=== PATIENT | male | born 1955 | race Caucasian/White ===

== ENCOUNTER 2016-08-17 03:53 | Observation (INO) | payer OTHER ==
[2016-08-17 04:03] VITALS: BMI 21.5
--- NOTE | 2016-08-17 04:10 | PDOC ---
History of Present Illness - General Chief Complaint: Syncope/Near Syncope Stated Complaint: SYNCOPE Time Seen by Provider: 08/17/16 04:06 Past History - Past Medical History Allergies/Adverse Reactions: Allergies Allergy/AdvReac Type Severity Reaction Status Date / Time No Known Allergies Allergy Verified 08/17/16 03:55 Home Medications: Ambulatory Orders NK [No Known Home Medication] 08/17/16 - Psycho/Social/Smoking Cessation Hx Suicidal Ideation: No Smoking History: Current every day smoker Information on smoking cessation initiated: No *Physical Exam - Vital Signs Last Vital Signs Temp Pulse Resp BP Pulse Ox 97.3 F L 59 L 18 120/69 96 08/17/16 04:04 08/17/16 04:01 08/17/16 04:01 08/17/16 04:01 08/17/16 04:01
--- NOTE | 2016-08-17 04:12 | PDOC ---
History of Present Illness - General Chief Complaint: Syncope/Near Syncope Stated Complaint: SYNCOPE Time Seen by Provider: 08/17/16 04:06 History Source: Patient, EMS ([facility]) - History of Present Illness Presenting Symptoms: Syncope Timing/Duration: reports: resolved prior to arrival Prior Chest Pain/Cardiac Workup: reports: No prior chest pain, No prior cardiac workup Past History - Travel Traveled outside of the country in the last 30 days: No Close contact w/someone who was outside of country & ill: No - Past Medical History Allergies/Adverse Reactions: Allergies Allergy/AdvReac Type Severity Reaction Status Date / Time No Known Allergies Allergy Verified 08/17/16 03:55 Home Medications: Ambulatory Orders NK [No Known Home Medication] 08/17/16 - Psycho/Social/Smoking Cessation Hx Suicidal Ideation: No Smoking History: Current every day smoker Information on smoking cessation initiated: No Cardiac Specific PMH - Complaint Specific PMHX Abdominal Aortic Aneurysm: No Angina: No Cardiac Arrhythmia: No Cardiac Stent: No GERD: No Review of Systems - Review of Systems Able to Perform ROS?: Yes Comments:: 08/17/16 04:23 CONSTITUTIONAL: Absent: fever, chills, diaphoresis, generalized weakness, malaise, loss of appetite HEENT: Absent: rhinorrhea, nasal congestion, throat pain, throat swelling, difficulty swallowing, mouth swelling, ear pain, eye pain, visual Changes CARDIOVASCULAR: +loc Absent: chest pain, palpitations, irregular heart rate, peripheral edema RESPIRATORY: Absent: cough, shortness of breath, dyspnea with exertion, orthopnea, wheezing, stridor, hemoptysis GASTROINTESTINAL: Absent: abdominal pain, abdominal distension, nausea, vomiting, diarrhea, constipation, melena, hematochezia GENITOURINARY: Absent: dysuria, frequency, urgency, hesitancy, hematuria, flank pain, genital pain MUSCULOSKELETAL: Absent: myalgia, arthralgia, joint swelling SKIN: Absent: rash, itching, pallor HEMATOLOGIC/IMMUNOLOGIC: Absent: easy bleeding, easy bruising, lymphadenopathy, frequent infections ENDOCRINE: Absent: unexplained weight gain, unexplained weight loss, heat intolerance, cold intolerance NEUROLOGIC: Absent: headache, focal weakness or paresthesias, dizziness, unsteady gait, seizure, mental status changes, bladder or bowel incontinence PSYCHIATRIC: Absent: anxiety, depression, suicidal or homicidal ideation, hallucinations. Is the patient limited Slovak proficient: No *Physical Exam - Vital Signs Last Vital Signs Temp Pulse Resp BP Pulse Ox 97.3 F L 74 19 117/72 100 08/17/16 04:04 08/17/16 06:40 08/17/16 06:40 08/17/16 06:40 08/17/16 06:40 - Physical Exam Comments: 08/17/16 06:27 GENERAL: Well developed, well nourished. Awake and alert. No acute distress. HEENT: Normocephalic, atraumatic. PERRLA, EOMI. No conjunctival pallor. Sclera are non- icteric. Moist mucous membranes. Oropharynx is clear. NECK: Supple. Full ROM. No JVD. Carotid pulses 2+ and symmetric, without bruits. No thyromegaly. No lymphadenopathy. CARDIOVASCULAR: Regular rate and rhythm. No murmurs, rubs, or gallops. Distal pulses are 2+ and symmetric. PULMONARY: No evidence of respiratory distress. Lungs clear to auscultation bilaterally. No wheezing, rales or rhonchi. ABDOMINAL: Soft. Non-tender. Non-distended. No rebound or guarding. No organomegaly. Normoactive bowel sounds. MUSCULOSKELETAL Normal range of motion at all joints. No bony deformities or tenderness. No CVA tenderness. EXTREMITIES: No cyanosis. No clubbing. No edema. No calf tenderness. SKIN: Warm and dry. Normal capillary refill. No rashes. No jaundice. NEUROLOGICAL: Alert, awake, appropriate. Cranial nerves 2-12 intact. No deficits to light touch and temperature in face, upper extremities and lower extremities. No motor deficits in the in face, upper extremities and lower extremities. Normoreflexic in the upper and lower extremities. Normal speech. Toes are down- going bilaterally. Gait is normal without ataxia. PSYCHIATRIC: Cooperative. Good eye contact. Appropriate mood and affect. ED Treatment Course - LABORATORY CBC & Chemistry Diagram: 08/17/16 04:13 08/17/16 04:30 - ADDITIONAL ORDERS Additional order review: Laboratory Results 08/17/16 08/17/16 08/17/16 04:30 04:13 04:13 INR 1.08 Sodium 136 Potassium 3.5 Chloride 96 L Carbon Dioxide 27 Anion Gap 13 BUN 7 Creatinine 0.8 Creat Clearance w eGFR > 60 Random Glucose 113 H Calcium 8.3 L Total Bilirubin 0.4 AST 24 ALT 28 Alkaline Phosphatase 86 Creatine Kinase 90 Troponin I < 0.02 Total Protein 6.7 Albumin 3.8 Alcohol, Quantitative < 5.0 08/17/16 04:13 RBC 4.96 MCV 90.7 MCHC 33.7 RDW 13.4 MPV 7.2 L Neutrophils % 59.5 Lymphocytes % 26.5 Monocytes % 12.2 H Eosinophils % 0.5 Basophils % 1.3 - RADIOLOGY Radiology Studies Ordered: Category Date Time Status HEAD CT WITHOUT CONTRAST [CT] Stat CT Scan 08/17/16 04:13 Taken CHEST X-RAY PORTABLE* [RAD] Stat Radiology 08/17/16 04:13 Taken Radiograph Interpretation: 08/17/16 05:07 Patient Name: Crescencio Moore THIS IS A PRELIMINARYREPORT FROM [facility] EXAM: CT brain without contrast IMAGES: 76 INDICATION: Headache and mental status changes. DATE OF SERVICE: 2016-08-17 04:40:12.0 COMPARISON: none FINDINGS: The ventricular system is midline and nondilated. The sulcal pattern is normal for the patient's age. Mild small vessel ischemic changes are noted. There is no bleed, mass, extra-axial fluid collection or mass effect. No skull fracture or skull lesion is identified. The visualized paranasal sinuses and mastoid air cells are clear other than a left maxillary sinus retention cyst or polyp. IMPRESSION: No evidence of acute pathology. THIS DOCUMENT HAS BEEN ELECTRONICALLY SIGNED Dipesh Armendariz MD 08/17/2016 04:58 EST - Medications Given in the ED: ED Medications Discontinued Medications Generic Name Dose Route Start Last Admin Trade Name Freq PRN Reason Stop Dose Admin Sodium Chloride 1,000 mls @ 1,000 mls/hr 08/17/16 04:13 08/17/16 04:22 Normal Saline - IV 08/17/16 05:12 1,000 mls/hr .Q1H ONE Administration Magnesium Sulfate 2 gm 08/17/16 06:24 08/17/16 06:44 Magnesium Sulfate IVPB 08/17/16 06:25 2 gm ONCE ONE Administration Potassium Chloride 40 meq 08/17/16 06:24 08/17/16 06:44 K-Dur - PO 08/17/16 06:25 40 meq ONCE ONE Administration Progress Note - Progress Note Progress Note: NSR at [address] elevation VS: supine: 117/72 74 pulse 19 resp sittin/70 72 pulse 20 resp 61-year-old male brought in by ambulance after a syncopal episode while at work. 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 Patient states when he went into the restroom at work, he was attempting to unbutton his pants when he immediately passed out. Patient was found by patient while laying on the floor up by the toilet. EMS states patient was unconscious when he was found. Patient denies any headache, dizziness, lightheadedness, neck pain, back pain, chest pain, shortness of breath, abdominal pains or extremity numbness or tingling sensation. Patient cannot recall why he syncopized this evening. He also states similar episode happen many years ago but was undiagnosed. *DC/Admit/Observation/Transfer Diagnosis at time of Disposition: Syncope and collapse - Discharge Dispostion Condition at time of disposition: Guarded Admit: Yes
[2016-08-17] MEDS ORDERED: SODIUM CHLORIDE 1,000 ML IV ONE (04:13)
[2016-08-17 05:02] LABS: BASOPHIL 1.3 % (0-2.0); EOSINOPHIL 0.5 % (0-4.5); MCH 30.6 pg (25.7-33.7); MCHC 33.7 g/dl (32.0-35.9); MEAN CELL VOLUME 90.7 fl (80-96); MEAN PLT VOLUME 7.2 fl (7.5-11.1); NEUTROPHILS 59.5 % (42.8-82.8); PLATELET COUNT 195 K/MM3 (134-434); RDW 13.4 % (11.9-15.9); WHITE BLOOD COUNT 5.5 K/mm3 (4.0-10.0)
[2016-08-17 05:19] LABS: INR 1.08 (0.82-1.09); PROTHROMBIN TIME (PATIENT) 11.9 SEC (9.98-11.88)
[2016-08-17 06:04] LABS: ALBUMIN 3.8 g/dl (3.4-5.0); ANION GAP 13 (8-16); BILIRUBIN,TOTAL 0.4 mg/dL (0.2-1.0); CALCIUM 8.3 mg/dL (8.5-10.1); CO2 27 mmol/L (21-32); CREATININE 0.8 mg/dL (0.7-1.3); GLUCOSE,RANDOM 113 mg/dL (74-106); SGOT/AST 24 U/L (15-37); SGPT/ALT 28 U/L (12-78); TOT PROT 6.7 g/dl (6.4-8.2)
[2016-08-17 06:07] LABS: ALK PHOS 86 U/L (45-117); TROPONIN I < 0.02 ng/ml (0.00-0.05)
[2016-08-17] MEDS ORDERED: POTASSIUM CHLORIDE TABS 20 MEQ TABLET.ER (FP) PO ONE ×2 (06:24→06:46)
[2016-08-17] MEDS ORDERED: MAGNESIUM SULF 50% (8.12 MEQ/2 ML-1 GM VIAL) IVPB ONE (06:24)
[2016-08-17] MEDS ORDERED: MAGNESIUM SULF 50% (8.12 MEQ/2 ML-1 GM VIAL) ONE (06:46)
--- NOTE | 2016-08-17 09:10 | HP ---
CHIEF COMPLAINT: Syncope PCP: HISTORY OF PRESENT ILLNESS: 61 year old male with no PMH is brought via EMS after a syncopal episode while at work. The patient was sitting for some time after he stood up, went to the bathroom and passed out. He was found unconscious on the floor. He states that he vomited twice. He denies dizziness or lightheadedness before the incident. He denies seizure activity, urinating, hitting his head, vomitus was non bilious and non bloody. 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 Patient denies any headache, dizziness, lightheadedness, headache, back pain, chest pain, shortness of breath, numbness, tingling sensation. He also states that he had similar episode several years ago. ER course was notable for: (1)CT head (2)troponin (3)CXR PAST MEDICAL HISTORY: Chronic shoulder pain-right. PAST SURGICAL HISTORY: None Social History: Smoking: Yes, pack/day for 45 years Alcohol: 2 beers/week Drugs: Denies Family History: Mother; maniac,depressive disorder Father:none Allergies: No Known Allergies Allergy (Verified 08/17/16 03:55) HOME MEDICATIONS: Medication Instructions Recorded NK [No Known Home Medication] 08/17/16 REVIEW OF SYSTEMS CONSTITUTIONAL: Absent: fever, chills, diaphoresis, generalized weakness, malaise, loss of appetite, weight change HEENT: Absent: rhinorrhea, nasal congestion, throat pain, throat swelling, difficulty swallowing, mouth swelling, ear pain, eye pain, visual changes CARDIOVASCULAR: Absent: chest pain, syncope, palpitations, irregular heart rate, lightheadedness , peripheral edema RESPIRATORY: Absent: cough, shortness of breath, dyspnea with exertion, orthopnea, wheezing, stridor, hemoptysis GASTROINTESTINAL: Absent: abdominal pain, abdominal distension, nausea, vomiting, diarrhea, constipation, melena, hematochezia GENITOURINARY: Absent: dysuria, frequency, urgency, hesitancy, hematuria, flank pain, genital pain MUSCULOSKELETAL: Right shoulder pain Absent: myalgia, joint swelling, back pain, neck pain SKIN: Absent: rash, itching, pallor HEMATOLOGIC/IMMUNOLOGIC: Absent: easy bleeding, easy bruising, lymphadenopathy, frequent infections ENDOCRINE: Absent: unexplained weight gain, unexplained weight loss, heat intolerance, cold intolerance NEUROLOGIC: Absent: headache, focal weakness or paresthesias, dizziness, unsteady gait, seizure, mental status changes, bladder or bowel incontinence PSYCHIATRIC: Absent: anxiety, depression, suicidal or homicidal ideation, hallucinations. PHYSICAL EXAMINATION Vital Signs - 24 hr 08/17/16 07:39 Pulse Rate [ 67 Left Apical] Respiratory 18 Rate Blood Pressure 104/72 [Right Arm] O2 Sat by Pulse 98 Oximetry (%) GENERAL: Awake, alert, and fully oriented, in no acute distress, sishelved. HEAD: Normal with no signs of trauma. EYES: Pupils equal, round and reactive to light, extraocular movements intact, sclera anicteric, conjunctiva clear. No lid lag. EARS, NOSE, THROAT: Ears normal, nares patent, oropharynx clear without exudates. Moist mucous membranes. NECK: Normal range of motion, supple without lymphadenopathy, JVD, or masses. LUNGS: Breath sounds equal, clear to auscultation bilaterally. No wheezes, and no crackles. No accessory muscle use. HEART: Regular rate and rhythm, normal S1 and S2 without murmur, rub or gallop. ABDOMEN: Soft, nontender, not distended, normoactive bowel sounds, no guarding, no rebound, no masses. No hepatomegaly or splenomegaly. MUSCULOSKELETAL: Normal range of motion at all joints. No bony deformities or tenderness. No CVA tenderness. UPPER EXTREMITIES: 2+ pulses, warm, well-perfused. No cyanosis. No clubbing. Cap refill <2 seconds. No peripheral edema. LOWER EXTREMITIES: 2+ pulses, warm, well-perfused. No calf tenderness. No peripheral edema. NEUROLOGICAL: Cranial nerves II-XII intact. Normal speech. Normal gait. PSYCHIATRIC: Cooperative. Good eye contact. Appropriate mood and affect. SKIN: Warm, dry, normal turgor, no rashes or lesions noted. CXR; No acute pathology CT head; no acute pathology EKG: NSR ASSESSMENT/PLAN: 61 year old male with no PMH is brought via EMS after a syncopal episode while at work. The patient was sitting for some time after he stood up, went to the bathroom and passed out. He was found unconscious on the floor. He states that he vomited twice. He denies dizziness or lightheadedness before the incident. He denies seizure activity, urinating, hitting his head, vomitus was non bilious and non bloody. He is placed on observation for syncope. Syncope episode: r/o cardiogenic or neurogenic/vasovagal -telemetry observation -pt doesnt have any chest pain or palpitations, no Neuro deficits -orthostatics -ECHO ordered -f/u troponins, first one negative -repeat EKG -NS 75 ml/hr DVT PPX: -ambulation GI PPX: -not indicated F/E/N: No/No changes/Regular - Problem List - Problem (1) Syncope and collapse Code(s): R55 - SYNCOPE AND COLLAPSE Visit type - Emergency Visit Emergency Visit: Yes ED Registration Date: 08/17/16 Care time: The patient presented to the Emergency Department on the above date and was hospitalized for further evaluation of their emergent condition. - New Patient This patient is new to me today: Yes Date on this admission: 08/17/16 - Critical Care Critical Care patient: No
--- NOTE | 2016-08-17 10:46 | PN ---
Teaching Attending Note Name of Resident: Kristy Welch ATTENDING PHYSICIAN STATEMENT I saw and evaluated the patient. I reviewed the resident's note and discussed the case with the resident. I agree with the resident's findings and plan as documented. SUBJECTIVE: This is a 61-year-old man who was brought in to the ER this morning after he passed out at work. 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 The last thing he remembers is trying to unbutton his pants. He had no chest pain, palpitations, shortness of breath, dizziness prior. He was found unconscious on the floor. He vomited but did not bite his tongue and was not incontinent of urine or stool. There was no apparent post-ictal period. He had a syncopal episode several years ago and no cause was found. OBJECTIVE: Vital Signs Period Temp Pulse Resp BP Sys/Tucker Pulse Ox Last 24 Hr 97.3 F 59-74 18-19 104-120/69-72 96-100 HEART: S1 S2, RRR LUNGS: Clear ABDOMEN: Soft, non-tender, non-distended, normal BS EXTREMITIES: No edema NEUROLOGICAL: Non-focal ASSESSMENT AND PLAN: This is a 61-year-old man with a history of a syncopal episode several years ago who presents to the ER today after passing out in the bathroom at work. 1. Syncope - Observe on telemetry - IV fluid - Check orthostatics - Serial troponins - Echocardiogram - EEG
[2016-08-17 11:42] LABS: CHOLESTEROL 168 mg/dL (50-200); LDL CHOLESTEROL (ONLY SJRH) 101 mg/dL (5-100)
[2016-08-17] MEDS: SODIUM CHLORIDE 1,000 ML IV SCH (12:22)
--- NOTE | 2016-08-17 23:20 | EKG ---
Test Reason : Blood Pressure : / mmHG Vent. Rate : 063 BPM Atrial Rate : 063 BPM P-R Int : 136 ms QRS Dur : 082 ms QT Int : 412 ms P-R-T Axes : 082 063 059 degrees QTc Int : 421 ms NORMAL SINUS RHYTHM SEPTAL INFARCT (CITED ON OR BEFORE 17-AUG-2016) ABNORMAL ECG WHEN COMPARED WITH ECG OF 17-AUG-2016 04:11, NO SIGNIFICANT CHANGE WAS FOUND Confirmed by SCAR SCHULER, SAMINA ([id number]) on 08/17/2016 11:20:06 PM Referred By: Confirmed By:SAMINA ABBOTT MD
--- NOTE | 2016-08-17 23:23 | EKG ---
Test Reason : Blood Pressure : / mmHG Vent. Rate : 061 BPM Atrial Rate : 061 BPM P-R Int : 152 ms QRS Dur : 090 ms QT Int : 438 ms P-R-T Axes : 082 066 060 degrees QTc Int : 440 ms NORMAL SINUS RHYTHM POSSIBLE LEFT ATRIAL ENLARGEMENT ANTERIOR INFARCT , AGE UNDETERMINED ABNORMAL ECG WHEN COMPARED WITH ECG OF 06-APR-2010 07:54, NO SIGNIFICANT CHANGE WAS FOUND Confirmed by SAMINA ABBOTT MD ([id number]) on 08/17/2016 11:23:26 PM Referred By: Confirmed By:SAMINA ABBOTT MD
[2016-08-18] MEDS: SODIUM CHLORIDE 1,000 ML IV SCH ×2 (06:20→10:05)
[2016-08-18 09:19] LABS: URINE APPEARANCE CLEAR; URINE BILIRUBIN NEGATIVE (NEGATIVE); URINE BLOOD NEGATIVE (NEGATIVE); URINE COLOR YELLOW; URINE GLUCOSE (UA) NEGATIVE (NEGATIVE); URINE KETONE TRACE (NEGATIVE); URINE LEUK ESTERASE NEGATIVE (NEGATIVE); URINE NITRITE NEGATIVE (NEGATIVE); URINE PROTEIN NEGATIVE (NEGATIVE); URINE UROBILINOGEN 2.0 E.U/dl E.U./dl (0.2-1.0)
[2016-08-18 15:07] VITALS: BP 115/67; PULSE 70; TEMP 98.1
--- NOTE | 2016-08-18 16:02 | PN ---
Teaching Attending Note Name of Resident: Kristy Welch ATTENDING PHYSICIAN STATEMENT I saw and evaluated the patient. I reviewed the resident's note and discussed the case with the resident. I agree with the resident's findings and plan as documented. SUBJECTIVE: Patient is comfortable with no acute distress, no shortness of breath, no headache, no abdominal pain, no nausea or vomiting, no fever or chills. OBJECTIVE: Vital Signs Temperature 98.1 F 08/18/16 15:06 Pulse Rate 70 08/18/16 15:06 Respiratory Rate 18 08/18/16 15:06 Blood Pressure 115/67 08/18/16 15:06 O2 Sat by Pulse Oximetry (%) 99 08/18/16 08:20 GENERAL: The patient is awake, alert, and fully oriented, in no acute distress. HEAD: Normal with no signs of trauma. EYES: PERRL, extraocular movements intact, sclera anicteric, conjunctiva clear. ENT: Ears normal, nares patent, oropharynx clear without exudates, moist mucous membranes, no teeth present. NECK: Trachea midline, full range of motion, supple. LUNGS: Breath sounds equal, clear to auscultation bilaterally, no wheezes, no crackles, no accessory muscle use. HEART: Regular rate and rhythm, S1, S2 without murmur, rub or gallop. ABDOMEN: Soft, nontender, nondistended, normoactive bowel sounds, no guarding, no rebound, no hepatosplenomegaly, no masses. EXTREMITIES: 2+ pulses, warm, well-perfused, no edema. NEUROLOGICAL: Cranial nerves II through XII grossly intact. Normal speech, gait not observed. PSYCH: Normal mood, normal affect. SKIN: Warm, dry, normal turgor, no rashes or lesions noted. CBCD WBC 5.5 K/mm3 (4.0-10.0) 08/17/16 04:13 RBC 4.96 M/mm3 (4.00-5.60) 08/17/16 04:13 Hgb 15.2 GM/dL (11.7-16.9) 08/17/16 04:13 Hct 45.0 % (35.4-49) 08/17/16 04:13 MCV 90.7 fl (80-96) 08/17/16 04:13 MCHC 33.7 g/dl (32.0-35.9) 08/17/16 04:13 RDW 13.4 % (11.9-15.9) 08/17/16 04:13 Plt Count 195 K/MM3 (134-434) 08/17/16 04:13 MPV 7.2 fl (7.5-11.1) L 08/17/16 04:13 CMP Sodium 136 mmol/L (136-145) 08/17/16 04:30 Potassium 3.5 mmol/L (3.5-5.1) 08/17/16 04:30 Chloride 96 mmol/L (98-107) L 08/17/16 04:30 Carbon Dioxide 27 mmol/L (21-32) 08/17/16 04:30 Anion Gap 13 (8-16) 08/17/16 04:30 BUN 7 mg/dL (7-18) 08/17/16 04:30 Creatinine 0.8 mg/dL (0.7-1.3) 08/17/16 04:30 Creat Clearance w eGFR > 60 (>60) 08/17/16 04:30 Random Glucose 113 mg/dL (74-106) H 08/17/16 04:30 Calcium 8.3 mg/dL (8.5-10.1) L 08/17/16 04:30 Total Bilirubin 0.4 mg/dL (0.2-1.0) 08/17/16 04:30 AST 24 U/L (15-37) 08/17/16 04:30 ALT 28 U/L (12-78) 08/17/16 04:30 Alkaline Phosphatase 86 U/L (45-117) 08/17/16 04:30 Total Protein 6.7 g/dl (6.4-8.2) 08/17/16 04:30 Albumin 3.8 g/dl (3.4-5.0) 08/17/16 04:30 CARDIAC ENZYMES Creatine Kinase 90 IU/L (39-308) 08/17/16 04:30 Troponin I < 0.02 ng/ml (0.00-0.05) 08/17/16 17:00 Current Medications Generic Name Dose Route Start Last Admin Trade Name Freq PRN Reason Stop Dose Admin Sodium Chloride 1,000 mls @ 75 mls/hr 08/17/16 10:00 08/18/16 10:05 Normal Saline - IV 75 mls/hr ASDIR CAPRICE Administration Medication Instructions Recorded NK [No Known Home Medication] 08/17/16 ASSESSMENT AND PLAN: This is a 61-year-old man with a history of a syncopal episode several years ago who presents to the ER today after passing out in the bathroom at work. # S/p Syncope secondary to vasovagal event; all the work up is negative, EEG to follow up as an outpatient, cardiac monitoring, orthostatic vital signs, ECHO, EKG, carotid doppler studies, were all negative.
--- NOTE | 2016-08-18 17:09 | DS ---
Physical Exam: SUBJECTIVE: Patient seen and examined. He denies more episodes of syncope, dizziness, headache, vision problems, paresthesia. He denies chest pain, SOB. OBJECTIVE: Vital Signs Period Temp Pulse Resp BP Sys/Tucker Pulse Ox Last 24 Hr 97.8 F-98.1 F 63-88 16-20 111-139/57-80 98-99 PHYSICAL EXAM GENERAL: The patient is awake, alert, and fully oriented, in no acute distress. HEAD: Normal with no signs of trauma. EYES: PERRL, extraocular movements intact, sclera anicteric, conjunctiva clear. ENT: Ears normal, nares patent, oropharynx clear without exudates, moist mucous membranes, no teeth present. NECK: Trachea midline, full range of motion, supple. LUNGS: Breath sounds equal, clear to auscultation bilaterally, no wheezes, no crackles, no accessory muscle use. HEART: Regular rate and rhythm, S1, S2 without murmur, rub or gallop. ABDOMEN: Soft, nontender, nondistended, normoactive bowel sounds, no guarding, no rebound, no hepatosplenomegaly, no masses. EXTREMITIES: 2+ pulses, warm, well-perfused, no edema. NEUROLOGICAL: Cranial nerves II through XII grossly intact. Normal speech, gait not observed. PSYCH: Normal mood, normal affect. SKIN: Warm, dry, normal turgor, no rashes or lesions noted. LABS Laboratory Results - last 24 hr 08/17/16 08/18/16 17:00 05:40 Troponin I < 0.02 Urine Color Yellow Urine Appearance Clear Urine pH 6.0 Ur Specific [place] 1.014 Urine Protein Negative Urine Glucose (UA) Negative Urine Ketones Trace H Urine Blood Negative Urine Nitrite Negative Urine Bilirubin Negative Urine Urobilinogen 2.0 e.u/dl Ur Leukocyte Esterase Negative HOSPITAL COURSE: Date of Admission:08/17/16 Date of Discharge: 08/18/16 Minutes to complete discharge: 50 Discharge Summary Reason For Visit: SYNCOPE AND COLLAPSE Current Active Problems Syncope and collapse (Acute) Hospital Course: 61 year old male with no PMH is brought via EMS after a syncopal episode while at work. The patient was sitting for some time after he stood up, went to the bathroom and passed out. He was found unconscious on the floor. He states that he vomited twice. He denies dizziness or lightheadedness before the incident. He denies seizure activity, urinating, hitting his head, vomit was non bilious and non bloody. 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 Patient denies any headache, dizziness, lightheadedness, headache, back pain, chest pain, shortness of breath, numbness, tingling sensation. He also states that he had similar episode several years ago. Hospital course: We ordered CY head, labs, troponins x3, CXR and results were normal. The pt didn't have more episodes of syncope. We placed him on observation. Ordered cardiac monitoring, orthostatic vital signs, ECHO, EKG, carotid doppler studies, fluids, EEG. The results came back negative. We diagnosed the pt as possible vasovagal syndrome and recommend to follow up with his PCP as outpatient. Condition: Good - Instructions Diet, Activity, Other Instructions: See your PCP in a week. If you have more episodes of syncope, dizziness, lightheadedness, vomiting, bleeding, chest pain, SOB come to Emergency Room. Referrals: Malissa Jain MD [Primary Care Provider] - Disposition: HOME - Home Medications Comprehensive Discharge Medication List: Ambulatory Orders NK [No Known Home Medication] 08/17/16 Problem List - Problems (1) Syncope and collapse Code(s): R55 - SYNCOPE AND COLLAPSE This patient is new to me today: No Emergency Visit: Yes ED Registration Date: 08/17/16 Care time: The patient presented to the Emergency Department on the above date and was hospitalized for further evaluation of their emergent condition. Critical Care patient: No - Discharge Referral Referred to [facility] Med P.C.: No
== END 2016-08-18 17:32 | disposition home or self-care (01) ==
LOC: JER 03:53 → JERBED 07:03 → J4W 17:27
PROVIDERS: ADMIT Internal Medicine; ATTEND Internal Medicine
DX: R55 Syncope and collapse (principal); F17.200 Nicotine dependence, unspecified, uncomplicated; F32.89 Other specified depressive episodes
CPT/HCPCS: 36415; 70450-TC; 71010-TC; 80053; 80061; 80307; 81003; 82550; 83721; 84484; 85025; 85610; 86850; 86900; 86901; 93005; 93010; 93306-TC; 93880-TC; 95816; 99285-25; G0378

== ENCOUNTER 2017-08-18 09:48 | Emergency (ER) | payer OTHER ==
[2017-08-18 09:53] VITALS: BP 144/69; PULSE 105; TEMP 98.8; BMI 18.8
--- NOTE | 2017-08-18 12:09 | PDOC ---
History of Present Illness - General Chief Complaint: Cold Symptoms Stated Complaint: SOB Time Seen by Provider: 08/18/17 11:35 History Source: Patient Exam Limitations: No Limitations - History of Present Illness Initial Comments: 08/18/17 12:01 62-year-old male presents to the ED with a cough with productive [place] phlegm for the past 5 days. Patient denies shortness of breath, fever, chills, chest pain, weight loss, hemoptysis or night sweats. Patient is a up pack per day if not more of cigarettes for the past 40 years. Patient states has been using his inhaler that he was given by his physician last winter for bronchitis but states symptoms do not resolve completely. patient states history of COPD. Timing/Duration: reports: other (5 days) Severity: reports: mild, moderate Possible Cause: Yes: occasional episodes Modifying Factors: improves with: coughing Associated Symptoms: reports: cough. denies: fever/chills Past History - Travel Traveled outside of the country in the last 30 days: No - Past Medical History Allergies/Adverse Reactions: Allergies Allergy/AdvReac Type Severity Reaction Status Date / Time No Known Allergies Allergy Verified 08/18/17 09:53 Home Medications: Ambulatory Orders Naproxen 500 mg PO BID 8 Days #16 tablet 08/14/17 Oxycodone HCl/Acetaminophen [Percocet 10-325 mg Tablet] 1 each PO BID PRN Zolpidem Tartrate [Ambien] 10 mg PO HS 08/14/17 Anemia: No Asthma: No Cancer: No Cardiac Disorders: No CVA: No COPD: Yes (emphysema) CHF: No Dementia: No Diabetes: No GI Disorders: No Disorders: No HTN: No Hypercholesterolemia: No Liver Disease: No Seizures: No Thyroid Disease: No - Surgical History Abdominal Surgery: No Appendectomy: No Cardiac Surgery: No Cholecystectomy: No Lung Surgery: No Neurologic Surgery: No Orthopedic Surgery: No - Suicide/Smoking/Psychosocial Hx Smoking History: Current every day smoker Have you smoked in the past 12 months: Yes Number of Cigarettes Smoked Daily: 20 Cigars Per Day: 0 Information on smoking cessation initiated: Yes 'Breaking Loose' booklet given: 08/18/17 Hx Alcohol Use: No Drug/Substance Use Hx: No Substance Use Type: Alcohol Hx Substance Use Treatment: Yes (detox, [facility], [facility] ) Patient Lives Alone: Yes Lives with/in: lives alone Respiratory Specific PMHX - Complaint Specific PMHX Angina: No Review of Systems - Review of Systems Able to Perform ROS?: No Constitutional: No: Symptoms Reported HEENTM: No: Symptoms Reported Respiratory: Yes: Cough, Productive cough Cardiac (ROS): No: Symptoms Reported ABD/GI: No: Symptoms Reported : No: Symptoms Reported Musculoskeletal: No: Symptoms Reported Integumentary: No: Symptoms Reported *Physical Exam - Vital Signs Last Vital Signs Temp Pulse Resp BP Pulse Ox 98.8 F 105 H 19 144/69 94 L 08/18/17 09:51 08/18/17 09:51 08/18/17 09:51 08/18/17 09:51 08/18/17 09:51 - Physical Exam General Appearance: Yes: Nourished, Appropriately Dressed. No: Apparent Distress HEENT: positive: Pharynx Normal Neck: positive: Supple Respiratory/Chest: positive: Lungs Clear, Normal Breath Sounds. negative: Respiratory Distress, Accessory Muscle Use Cardiovascular: positive: Regular Rhythm, Regular Rate (92 on exam). negative: Murmur Gastrointestinal/Abdominal: positive: Soft Extremity: positive: Normal Capillary Refill Integumentary: positive: Normal Color, Warm, Moist Neurologic: positive: Normal Mood/Affect, Motor Strength 5/5 (ambulatory) ED Treatment Course - RADIOLOGY Radiology Studies Ordered: Category Date Time Status CHEST PA & LAT [RAD] Stat Radiology 08/18/17 11:55 Ordered Medical Decision Making - Medical Decision Making 08/18/17 12:12 Pt with productive cough x 5 days. Pt with low grade temp and cough upon arrival. Pt is a ppd smoker. Pt concerniing for pneumonia, bronchitis, and influenza. Pt ordered for cxr and influenza 08/18/17 13:13 Chest x-ray shows no acute pathology. Influenza negative. Patient be discharged home with a Z-Mahesh for treatment of bronchitis and recommended to follow up with referred PMD and avoid smoking *DC/Admit/Observation/Transfer Diagnosis at time of Disposition: Bronchitis - Discharge Dispostion Disposition: HOME Condition at time of disposition: Good - Referrals Referrals: Johnny Chang MD [Staff Physician] - - Patient Instructions Printed Discharge Instructions: DI for Acute Bronchitis Additional Instructions: Please take azithromycin as prescribed use your inhaler as needed and please follow-up with referred physician. Please also avoid smoking as much as possible - Post Discharge Activity
== END 2017-08-18 13:17 | disposition home or self-care (01) ==
LOC: JERFT 09:48
DX: J40 Bronchitis, not specified as acute or chronic (principal); F17.210 Nicotine dependence, cigarettes, uncomplicated; J43.8 Other emphysema
CPT/HCPCS: 71046-TC; 87804; 99281-25

== ENCOUNTER 2019-05-11 09:34 | Observation (INO) | payer MEDICARE, OTHER ==
[2019-05-11 10:09] LABS: BASO % 0.5 % (0-2.0); EOS % 0.4 % (0-4.5); HEMATOCRIT 43.9 % (35.4-49); HEMOGLOBIN 14.9 GM/dL (11.7-16.9); LYMPH % 19.1 % (8-40); MCH 31.3 pg (25.7-33.7); MEAN CELL VOLUME 92.2 fl (80-96); MEAN PLT VOLUME 8.5 fl (7.5-11.1); MONO % 9.2 % (3.8-10.2); NEUT % 70.8 % (42.8-82.8); PLATELET COUNT 370 K/MM3 (134-434); RBC 4.77 M/mm3 (4.00-5.60); RDW 13.7 % (11.9-15.9)
[2019-05-11 11:03] LABS: ALBUMIN 3.4 g/dl (3.4-5.0); ALK PHOS 87 U/L (45-117); ANION GAP 7 MMOL/L (8-16); BILIRUBIN,TOTAL 0.5 mg/dL (0.2-1); BLOOD UREA NITROGEN 9.2 mg/dL (7-18); CALCIUM 8.3 mg/dL (8.5-10.1); CHLORIDE 102 mmol/L (98-107); CO2 27 mmol/L (21-32); CREATININE 0.5 mg/dL (0.55-1.3); GLUCOSE,RANDOM 103 mg/dL (74-106); POTASSIUM 3.9 mmol/L (3.5-5.1); SGOT/AST 25 U/L (15-37); SGPT/ALT 27 U/L (13-61); SODIUM 136 mmol/L (136-145); TOT PROT 6.6 g/dl (6.4-8.2)
--- NOTE | 2019-05-11 11:03 | EKG ---
Test Reason : Blood Pressure : / mmHG Vent. Rate : 090 BPM Atrial Rate : 090 BPM P-R Int : 150 ms QRS Dur : 076 ms QT Int : 340 ms P-R-T Axes : 086 080 079 degrees QTc Int : 415 ms NORMAL SINUS RHYTHM ANTEROSEPTAL INFARCT (CITED ON OR BEFORE 17-AUG-2016) ABNORMAL ECG WHEN COMPARED WITH ECG OF 17-AUG-2016 12:32, QUESTIONABLE CHANGE IN INITIAL FORCES OF SEPTAL LEADS Confirmed by CAROLIN HOWARD MD ([id number]) on 05/11/2019 11:03:06 AM Referred By: Confirmed By:CAROLIN HOWARD MD
--- NOTE | 2019-05-11 11:25 | PDOC ---
Documentation entered by Keeley Hernández SCRIBE, acting as scribe for Ashley Basurto MD. Ashley Basurto MD: This documentation has been prepared by the Edgar clayton Adrianna, SCRIBE, under my direction and personally reviewed by me in its entirety. I confirm that the documentation accurately reflects all work, treatment, procedures, and medical decision making performed by me. History of Present Illness - General Chief Complaint: Syncope/Near Syncope Stated Complaint: Syncope/Near Syncope Time Seen by Provider: 05/11/19 09:39 History Source: Patient Exam Limitations: No Limitations - History of Present Illness Initial Comments: The patient is a 64 year old male, with a significant PMH of COPD/emphysema, who presents to the ED BIBEMS s/p near-syncopal episodes. 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 He is able to recall the entire episode, and notes that he slowly lowered himself to the ground to avoid falling. Patient notes he landed on his left hip and lower back , but denies hitting his head. He endorses a cough productive of white sputum secondary to his emphysema. Denies any other complaints while in the ED. Denies fever, chills, chest pain, SOB, nausea, vomit, abdominal pain, diarrhea, constipation, dysuria, hematuria. Allergies: NKA, NKDA Surgical History: None reported Social History: Current everyday smoker (1 ppd). Occasional EtOH use. PCP: Doesnt recall Is this a multiple visit Asthma Patient?: No Past History - Past Medical History Allergies/Adverse Reactions: Allergies Allergy/AdvReac Type Severity Reaction Status Date / Time No Known Allergies Allergy Verified 05/11/19 09:42 Home Medications: Ambulatory Orders NK [No Known Home Medication] 05/11/19 Anemia: No Asthma: No Cancer: No Cardiac Disorders: No CVA: No COPD: Yes (emphysema) CHF: No Dementia: No Diabetes: No GI Disorders: No Disorders: No HTN: No Hypercholesterolemia: No Liver Disease: No Seizures: No Thyroid Disease: No - Surgical History Abdominal Surgery: No Appendectomy: No Cardiac Surgery: No Cholecystectomy: No Lung Surgery: No Neurologic Surgery: No Orthopedic Surgery: No - Psycho Social/Smoking Cessation Hx Smoking History: Current every day smoker Have you smoked in the past 12 months: Yes Number of Cigarettes Smoked Daily: 20 Cigars Per Day: 0 Information on smoking cessation initiated: No 'Breaking Loose' booklet given: 08/18/17 Hx Alcohol Use: No Drug/Substance Use Hx: No Substance Use Type: Alcohol Hx Substance Use Treatment: Yes (detox, [facility], [facility] ) Review of Systems - Review of Systems Comments:: GENERAL/CONSTITUTIONAL: No fever or chills. No weakness. HEAD, EYES, EARS, NOSE AND THROAT: No change in vision. No ear pain or discharge. No sore throat. CARDIOVASCULAR: No chest pain or shortness of breath. RESPIRATORY: +Cough productive of white sputum (2/2 emphysema). No wheezing or hemoptysis. GASTROINTESTINAL: No nausea, vomiting, diarrhea or constipation. GENITOURINARY: No dysuria, frequency, or change in urination. MUSCULOSKELETAL: No joint or muscle swelling or pain. No neck or back pain. SKIN: No rash NEUROLOGIC: No headache, vertigo, loss of consciousness, or change in strength/ sensation. ENDOCRINE: No increased thirst. No abnormal weight change. HEMATOLOGIC/LYMPHATIC: No anemia, easy bleeding, or history of blood clots. ALLERGIC/IMMUNOLOGIC: No hives or skin allergy. *Physical Exam - Vital Signs Last Vital Signs Temp Pulse Resp BP Pulse Ox 97.4 F L 83 18 126/76 95 05/11/19 09:37 05/11/19 09:58 05/11/19 09:37 05/11/19 09:58 05/11/19 09:46 - Physical Exam Comments: GENERAL: AAOx3. The patient is in no acute distress. Answering questions appropriately. HEAD: Normal with no signs of trauma. EYES: PERRLA, EOMI, sclera anicteric, conjunctiva clear. ENT: Ears normal, nares patent, oropharynx clear without exudates. Moist mucous membranes. NECK: Normal range of motion, supple without lymphadenopathy, JVD, or masses. LUNGS: Breath sounds equal, clear to auscultation bilaterally. No wheezes, and no crackles. HEART:Regular rate and rhythm, normal S1 and S2 without murmur, rub or gallop. ABDOMEN: Soft, nontender, normoactive bowel sounds. No guarding, no rebound. No masses palpable. EXTREMITIES: Normal range of motion, no edema. No clubbing or cyanosis. No erythema, or tenderness. NEUROLOGICAL: Cranial nerves II through XII grossly intact. Normal speech. No focal neurological deficits. MUSCULOSKELETAL: Back non-tender to palpation, no CVA tenderness SKIN: Warm, Dry, normal turgor, no rashes or lesions noted. ED Treatment Course - LABORATORY CBC & Chemistry Diagram: 05/11/19 09:50 05/11/19 09:50 - ADDITIONAL ORDERS Additional order review: Laboratory Results 05/11/19 09:50 Sodium 136 Potassium 3.9 Chloride 102 Carbon Dioxide 27 Anion Gap 7 L BUN 9.2 Creatinine 0.5 L Est GFR (CKD-EPI)AfAm 132.73 Est GFR (CKD-EPI)NonAf 114.52 Random Glucose 103 Calcium 8.3 L Total Bilirubin 0.5 AST 25 ALT 27 Alkaline Phosphatase 87 Creatine Kinase 148 Troponin I < 0.02 B-Natriuretic Peptide 50.0 Total Protein 6.6 Albumin 3.4 05/11/19 09:50 RBC 4.77 MCV 92.2 MCHC 34.0 RDW 13.7 MPV 8.5 D Neutrophils % 70.8 Lymphocytes % 19.1 D Monocytes % 9.2 Eosinophils % 0.4 Basophils % 0.5 - RADIOLOGY Radiology Studies Ordered: Category Date Time Status HEAD CT WITHOUT CONTRAST [CT] Stat CT Scan 05/11/19 09:36 Completed CHEST - PA [RAD] Urgent Radiology 05/11/19 09:36 Completed HIP & PELVIS-LEFT [RAD] Stat Radiology 05/11/19 09:36 Taken Radiograph Interpretation: EXAM#: TYPE/EXAM: RESULT: [id number] RAD/CHEST - PA Chest: Hip pain. Preadmission. A single AP view of the chest reveals some vague increased markings in the upper lobes which have become more prominent than 08/18/2017. There is no sign of infiltrate or failure. The mediastinum is not widened. The angles are sharp. The bones and soft tissues are intact. Reported By: Sonny Singh MD 05/11/19 10:55 EXAM#: TYPE/EXAM: RESULT: [id number] CT/HEAD CT WITHOUT CONTRAST Syncope IMPRESSION: No significant interval change or acute intracranial pathology is identified Reported By: Julian Gallardo MD 05/11/19 11:03 EXAM#: TYPE/EXAM: RESULT: [id number] RAD/HIP PELVIS-LEFT Preadmission. Single AP of the pelvis. Left hip 2 views. Asymmetric loss of disc space height at L4-5 to the greater degree on the left side, clinically correlate for scoliosis. L5- S1, suggestion of the disc space narrowing. Symmetrical bony trabecular pattern is seen in the proximal femur bilaterally. Symmetrical articulation of the hip joints. Normal contour of the femoral heads. The visualized osseous structures appear intact. No acute bony abnormalities are seen. Reported By: Miguel Aguilar MD 05/11/19 12:01 Medical Decision Making - Medical Decision Making 05/11/19 11:15 Mr. Moore is a 64-year-old male with a history of COPD/emphysema who presents emergency department via EMS due to presyncope. Patient was at work today, suddenly felt weak. He lowered himself to the ground, landing on his left hip. He is not sure if he had a loss of consciousness, from his description it seems like he recalls everything around his fall. His next memory is of his coworker trying to wake him up. He denies preceding chest pain, palpitations, shortness of breath, focal weakness or numbness. No prior episodes like this. He has a prior medical history only of emphysema. Denies coronary artery disease. States he takes no medications. Patient differential diagnosis includes but is not limited to: ACS, arrhythmia, orthostasis/dehydration, seizure, stroke, We will do: Labs EKG Orthostatic vital signs Gentle hydration We will plan to admit EKG: Normal sinus rhythm, rate of 90 bpm, baseline is wavy, limiting interpretation. No obvious ST elevation T waves are upright Laboratory Tests 05/11/19 05/11/19 09:50 09:50 WBC 10.0 Hgb 14.9 Hct 43.9 Plt Count 370 D BUN 9.2 Creatinine 0.5 L Creatine Kinase 148 Troponin I < 0.02 CT head: No acute infarct or bleed Chest x-ray: No acute infiltrate Xray hip: No fracture noted. We will plan to place on observation Clinical impression: Syncope, initial presentation Discharge - Discharge Information Problems reviewed: Yes Clinical Impression/Diagnosis: Syncope and collapse Condition: Stable - Admission Yes - Follow up/Referral - Patient Discharge Instructions - Post Discharge Activity
[2019-05-11] MEDS ORDERED: SODIUM CHLORIDE 500 ML IV STA (11:51)
--- NOTE | 2019-05-11 13:22 | HP ---
CHIEF COMPLAINT: syncope PCP: none HISTORY OF PRESENT ILLNESS: Patient is a 64 y/o male with no past medical history who presents for syncope. 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 He got into an argument with a coworker and was feeling angry. He was standing at the bar when he felt short of breath and the next thing he knew he was on the ground. He landed on his left hip. Patient has had one syncopal episode two years ago and remembers also being angry at the time. Denies any past medical history or daily medication. Denies nausea, vomiting, dysuria, hematuria, headache, chest pain, blurry vision , fevers or chills. ER course was notable for: (1) (2) (3) Recent Travel: denies PAST MEDICAL HISTORY: none PAST SURGICAL HISTORY: denies Social History: Smokin pack a day Alcohol: 1-2 beers daily Drugs: denies Allergies No Known Allergies Allergy (Verified 05/11/19 09:42) HOME MEDICATIONS: Home Medications Medication Instructions Recorded NK [No Known Home Medication] 05/11/19 REVIEW OF SYSTEMS CONSTITUTIONAL: Absent: fever, chills, diaphoresis, generalized weakness, malaise, loss of appetite, weight change HEENT: Absent: rhinorrhea, nasal congestion, throat pain, throat swelling, difficulty swallowing, mouth swelling, ear pain, eye pain, visual changes CARDIOVASCULAR: Absent: chest pain, syncope, palpitations, irregular heart rate, lightheadedness , peripheral edema RESPIRATORY: Absent: cough, shortness of breath, dyspnea with exertion, orthopnea, wheezing, stridor, hemoptysis GASTROINTESTINAL: Absent: abdominal pain, abdominal distension, nausea, vomiting, diarrhea, constipation, melena, hematochezia GENITOURINARY: Absent: dysuria, frequency, urgency, hesitancy, hematuria, flank pain, genital pain MUSCULOSKELETAL: Absent: myalgia, arthralgia, joint swelling, back pain, neck pain SKIN: Absent: rash, itching, pallor HEMATOLOGIC/IMMUNOLOGIC: Absent: easy bleeding, easy bruising, lymphadenopathy, frequent infections ENDOCRINE: Absent: unexplained weight gain, unexplained weight loss, heat intolerance, cold intolerance NEUROLOGIC: Absent: headache, focal weakness or paresthesias, dizziness, unsteady gait, seizure, mental status changes, bladder or bowel incontinence PSYCHIATRIC: Absent: anxiety, depression, suicidal or homicidal ideation, hallucinations. PHYSICAL EXAMINATION Vital Signs - 24 hr 05/11/19 05/11/19 05/11/19 09:37 09:46 09:58 Temperature 97.4 F L Pulse Rate 90 Pulse Rate [ 88 Left side Sitting] Pulse Rate [ 98 H Left side Standing] Pulse Rate [ 83 Left side Supine] Respiratory 18 Rate Blood Pressure 152/92 Blood Pressure 133/86 [Left side Sitting] Blood Pressure 151/107 H [Left side Standing] Blood Pressure 126/76 [Left side Supine] O2 Sat by Pulse 95 95 Oximetry (%) GENERAL: Awake, alert, and fully oriented, in no acute distress. HEAD: Normal with no signs of trauma. EYES: Pupils equal, round and reactive to light, extraocular movements intact, EARS, NOSE, THROAT: Moist mucous membranes. normal dentition NECK: Normal range of motion, LUNGS: Breath sounds equal, clear to auscultation bilaterally. No wheezes, and no crackles. No accessory muscle use. HEART: Regular rate and rhythm, normal S1 and S2 without murmur, rub or gallop. ABDOMEN: Soft, nontender, not distended, normoactive bowel sounds, no guarding, no rebound, no masses. MUSCULOSKELETAL: Normal range of motion at all joints. LOWER EXTREMITIES: 2+ pulses, warm, well-perfused. No calf tenderness. No peripheral edema. NEUROLOGICAL: Cranial nerves II-XII intact. Normal speech. Normal gait. heel to toe normal PSYCHIATRIC: Cooperative. Good eye contact. Appropriate mood and affect. SKIN: Warm, dry, normal turgor, no rashes or lesions noted, normal capillary refill. CBC, BMP 05/11/19 09:50 05/11/19 09:50 ASSESSMENT/PLAN: Patient is a 64 y/o male with no past medical history who presents for syncope. #Syncope - possibly reflex syncope 2/2 to emotional response, r/o cardiac and vascular causes - monitor patients on tele - f/u echo - orthostatics negative - ekg w/o heart blocks or bundle branch blocks, poor R wave progression in lateral leads #DVT ppx - lovenox 40 daily #nicotine dependence - patient does not want a nicotine patch at this time - counselor/art therapist on methods to aid with quitting FEN regular diet Dispo: monitor on tele, obs Visit type - Emergency Visit Emergency Visit: Yes ED Registration Date: 05/11/19 Care time: The patient presented to the Emergency Department on the above date and was hospitalized for further evaluation of their emergent condition. - New Patient This patient is new to me today: Yes Date on this admission: 05/12/19 - Critical Care Critical Care patient: No ATTENDING PHYSICIAN STATEMENT I saw and evaluated the patient. I reviewed the resident's note and discussed the case with the resident. I agree with the resident's findings and plan as documented. SUBJECTIVE: OBJECTIVE: ASSESSMENT AND PLAN:
--- NOTE | 2019-05-11 15:23 | ECHO ---
Name: DEBRA ARAUJO Exam:Adult Echocardiogram Study Date: 05/11/2019 02:29 PM Age: 64 yrs Reason For Study: SYNCOPE Height: 71 in Weight: 135 lb BSA: 1.8 m2 MMode/2D Measurements & Calculations IVSd: 0.69 cm Ao root diam: 3.2 cm LVIDd: 5.2 cm LA dimension: 3.0 cm LVIDs: 3.0 cm ACS: 1.9 cm LVPWd: 0.84 cm IVSs: 1.1 cm LVPWs: 1.1 cm EDV(Teich): 129.0 ml ESV(Teich): 33.8 ml Doppler Measurements & Calculations MV E max chandu: 61.0 cm/sec Ao V2 max: 102.8 cm/sec MV A max chandu: 56.5 cm/sec Ao max P.2 mmHg MV E/A: 1.1 Ao V2 mean: 62.7 cm/sec Ao mean P.8 mmHg Ao V2 VTI: 16.5 cm TR max chandu: 317.4 cm/sec Med Peak E' Chandu: 8.4 cm/sec TR max P.3 mmHg Med E/e': 7.2 Lat Peak E' Chandu: 9.4 cm/sec Lat E/e': 6.5 Procedure A two-dimensional transthoracic echocardiogram with color flow and Doppler was performed. Left Ventricle The left ventricular size, thickness and function are normal. The left ventricular ejection fraction is normal. Left Ventricular Filling pattern is normal for age. The left ventricular wall motion is alfa l. Right Ventricle The right ventricle is normal in size and function. Atria Normal left and right atrial size and function. Mitral Valve There is trivial mitral valve thickening. There is no mitral valve stenosis. There is trace mitral regurgitation. Tricuspid Valve There is trivial tricuspid valve thickening. There is no tricuspid stenosis. There is mild tricuspid regurgitation. Right ventricular systolic pressure is elevated at 40-50mmHg. Aortic Valve The aortic valve is normal in structure and function. No hemodynamically significant valvular aortic stenosis. No aortic regurgitation is present. Pulmonic Valve The pulmonic valve is not well visualized. Great Vessels The aortic root is normal size. Pericardium/Pleura There is no pericardial effusion. Interpretation Summary The left ventricular size, thickness and function are normal The left ventricular ejection fraction is normal. The left ventricular wall motion is normal. There is mild tricuspid regurgitation. Right ventricular systolic pressure is elevated at 40-50mmHg. There is trace mitral regurgitation. Left Ventricular Filling pattern is normal for age. MD Gordo Bueno 05/11/2019 03:22 PM
[2019-05-11 19:02] VITALS: BMI 16.6
--- NOTE | 2019-05-11 19:27 | PN ---
Teaching Attending Note Name of Resident: Andreea Vega ATTENDING PHYSICIAN STATEMENT I saw and evaluated the patient. I reviewed the resident's note and discussed the case with the resident. I agree with the resident's findings and plan as documented. SUBJECTIVE: CC: syncope HPI: 64 y/o man with h/o nicotine dependence and previous syncope who presented with syncope after an argument He has syncope after an argument, LOC was bbrief. was in standing position. No palpitations or CP or SOB befroe or after. he denies any painin hips or other joints at this point. OBJECTIVE: NAD, MMM, no JVD. stained lambert CV: RRR, no MRG Lungs: CTAB Abd; soft, NT, ND, nL BS Ext : No edema or erythema on upper or LE . thick toe nails Neuro: EOMI, round equal and reactive pupils, no facial droop, tongue at mid line, strength 5/5 in upper and lower extremities ASSESSMENT AND PLAN: 64 y/o man with h/o nicotine dependence and previous syncope who presented with syncope after an argument 1- Syncope: likely vasovagal. need t r/o arrhythmias. EKG with sinus rhythm, QTC 415. - tele - echo - last CUS unremarkable , will not repeat - orthostatic VS neg for drop - Nl bneuro exam 2- Nicotine dependence . counseled
[2019-05-12 08:01] LABS: BASO % 0.7 % (0-2.0); EOS % 0.9 % (0-4.5); HEMATOCRIT 40.7 % (35.4-49); MCH 31.5 pg (25.7-33.7); MCHC 34.4 g/dl (32.0-35.9); MEAN CELL VOLUME 91.7 fl (80-96); MEAN PLT VOLUME 6.8 fl (7.5-11.1); MONO % 9.7 % (3.8-10.2); NEUT % 66.7 % (42.8-82.8); PLATELET COUNT 283 K/MM3 (134-434); RBC 4.44 M/mm3 (4.00-5.60); RDW 13.3 % (11.9-15.9)
[2019-05-12 08:35] LABS: ALBUMIN 3.3 g/dl (3.4-5.0); BILIRUBIN,TOTAL 0.8 mg/dL (0.2-1); BLOOD UREA NITROGEN 8.2 mg/dL (7-18); CALCIUM 8.5 mg/dL (8.5-10.1); CREATININE 0.5 mg/dL (0.55-1.3); MAGNESIUM 2.1 mg/dL (1.8-2.4); PHOSPHOROUS 3.3 mg/dL (2.5-4.9); POTASSIUM 4.1 mmol/L (3.5-5.1); TOT PROT 6.3 g/dl (6.4-8.2)
[2019-05-12] MEDS ORDERED: ENOXAPARIN NA (PORCINE) 40 MG/0.4 ML DISP.SYRIN SQ SCH (10:00)
--- NOTE | 2019-05-12 12:23 | PN ---
Teaching Attending Note Name of Resident: Katelin Ibarra ATTENDING PHYSICIAN STATEMENT I saw and evaluated the patient. I reviewed the resident's note and discussed the case with the resident. I agree with the resident's findings and plan as documented. SUBJECTIVE: no pain,no CP ,no SOB , no palpitations OBJECTIVE: NAD, MMM, no JVD. stained lambert CV: RRR, no MRG Lungs: CTAB Abd; soft, NT, ND, NL BS Ext : No edema or erythema on upper or LE . thick toe nails Neuro: EOMI, round equal and reactive pupils, no facial droop, tongue at mid line, strength 5/5 in upper and lower extremities ASSESSMENT AND PLAN: 64 y/o man with h/o nicotine dependence and previous syncope who presented with syncope after an argument 1- Syncope: likely vasovagal. tele with no events - arrange for card f/u for Holter/event monitor 2- Nicotine dependence . counseled 3- Possible chronic lung disease due to smoking. RV pressure is elevated. refer to pulm fro PFTs and CT of chest to r/o cancer. he understands importance of f/u dc home /. refer to resident clinic
[2019-05-12 14:21] VITALS: BP 135/74; PULSE 92; TEMP 98.4
--- NOTE | 2019-05-12 15:24 | DS ---
Physical Exam: SUBJECTIVE: Patient seen and examined OBJECTIVE: Vital Signs Period Temp Pulse Resp BP Sys/Tucker Pulse Ox Last 24 Hr 97.7 F-98.4 F 73-92 18-20 108-141/60-78 91-98 PHYSICAL EXAM GENERAL: The patient is awake, alert, and fully oriented, in no acute distress. HEAD: Normal with no signs of trauma. EYES: PERRL, extraocular movements intact, sclera anicteric, conjunctiva clear. ENT: Ears normal, nares patent, oropharynx clear without exudates, moist mucous membranes. NECK: Trachea midline, full range of motion, supple. LUNGS: Breath sounds equal, clear to auscultation bilaterally, no wheezes, no crackles, no accessory muscle use. HEART: Regular rate and rhythm, S1, S2 without murmur, rub or gallop. ABDOMEN: Soft, nontender, nondistended, normoactive bowel sounds, no guarding, no rebound, no hepatosplenomegaly, no masses. EXTREMITIES: 2+ pulses, warm, well-perfused, no edema. NEUROLOGICAL: Cranial nerves II through XII grossly intact. Normal speech, gait not observed. PSYCH: Normal mood, normal affect. SKIN: Warm, dry, normal turgor, no rashes or lesions noted. LABS Laboratory Results - last 24 hr 05/12/19 05/12/19 07:20 07:20 WBC 8.0 RBC 4.44 Hgb 14.0 Hct 40.7 MCV 91.7 MCH 31.5 MCHC 34.4 RDW 13.3 Plt Count 283 D MPV 6.8 L D Absolute Neuts (auto) 5.3 Neutrophils % 66.7 Lymphocytes % 22.0 Monocytes % 9.7 Eosinophils % 0.9 D Basophils % 0.7 Nucleated RBC % 0 Sodium 136 Potassium 4.1 Chloride 102 Carbon Dioxide 25 Anion Gap 8 BUN 8.2 Creatinine 0.5 L Est GFR (CKD-EPI)AfAm 132.73 Est GFR (CKD-EPI)NonAf 114.52 Random Glucose 88 Calcium 8.5 Phosphorus 3.3 Magnesium 2.1 Total Bilirubin 0.8 AST 21 ALT 26 Alkaline Phosphatase 84 Total Protein 6.3 L Albumin 3.3 L TSH 0.72 HOSPITAL COURSE: Date of Admission:05/11/19 Date of Discharge: 05/12/19 Discharge Summary Problems reviewed: Yes Reason For Visit: SYNCOPE AND COLLPSE Condition: Improved - Instructions Diet, Activity, Other Instructions: You were in the hospital because you had a syncopal episode where you passed out briefly after becoming angry. This has happened to you once before in the past. Your workup included an EKG (which was not different from previous EKGs) and cardiac monitoring overnight which did not reveal any arrhythmias. You also had an imaging study called an echocardiogram which showed elevated pressure on the right side of the heart. This in combination with your smoking history and increased coughing and phlegm production are indicative of chronic lung disease. You will need to follow up with a fluid jet cutter operator, a surveillance sensor officer, and a primary care doctor within 1 week of leaving the hospital to evaluate and treat your for any chronic medical problems. Please follow up with the following doctors: - Dr. Burger, a fluid jet cutter operator to get a holter monitor. This monitor will measure your heart beats for a longer period of time to make sure there are no arrhythmias - Dr. Mcnamara, a surveillance sensor officer, to be evaluated for chronic lung disease. You will need pulmonary function tests and a CT scan of your chest to make sure there is no cancer. - Dr. Aceves, the internal medicine doctor who saw you in the hospital. He can provide you with primary care services as an outpatient. The office is located at [address] [place] [address]. ([phone]). Please talk with your primary care doctor about smoking cessation. It is very important to quit smoking for you lung and heart health, and to reduce your risk of cancer. Referrals: Jon Mcnamara MD [Staff Physician] - 1 Week Jones Aceves RES [Resident] - 1 Week Robert Burger MD [Staff Physician] - 1 Week Disposition: HOME - Home Medications Comprehensive Discharge Medication List: Ambulatory Orders NK [No Known Home Medication] 05/11/19 ATTENDING PHYSICIAN STATEMENT I saw and evaluated the patient. I reviewed the resident's note and discussed the case with the resident. I agree with the resident's findings and plan as documented. SUBJECTIVE: OBJECTIVE: ASSESSMENT AND PLAN:
== END 2019-05-12 14:31 | disposition home or self-care (01) ==
LOC: JER 09:34 → JERBED 12:01 → J4W 17:18
PROVIDERS: ADMIT Internal Medicine; ATTEND Internal Medicine
PROC: 3E0337Z Introduction of Electrolytic and Water Balance Substance into Peripheral Vein, Percutaneous Approach (ICD-10-PCS; principal; 2019-05-11)
DX: R55 Syncope and collapse (principal); J43.9 Emphysema, unspecified; F17.210 Nicotine dependence, cigarettes, uncomplicated; Z29.8 Encounter for other specified prophylactic measures
CPT/HCPCS: 36415; 70450-TC; 71045-TC-FY; 73523-TC-FY; 80053; 82550; 83735; 83880; 84100; 84443; 84484; 85025; 93005; 93010; 93306-TC; 96360; 99285-25; G0378

== ENCOUNTER 2021-09-30 21:36 | Inpatient (IN) | payer MEDICARE, OTHER ==
[2021-09-30] MEDS ORDERED: methylPREDNISolone NA SUCC 125 MG/2 ML VIAL IVPB ONE (22:00)
[2021-09-30] MEDS ORDERED: MAGNESIUM SULF 50% (8.12 MEQ/2 ML-1 GM VIAL) IVPB ONE (22:00)
[2021-09-30] MEDS ORDERED: ALBUTEROL SO4 2.5/IPRATROPIUM 0.5 INH SOL 3 ML VIAL.NEB. NEB ONE ×2 (22:00→22:20)
[2021-09-30] MEDS ORDERED: ALBUTEROL SO4 0.083% IH SOL 2.5 MG/3 ML VIAL.NEB. NEB PRN (22:00)
[2021-09-30] MEDS ORDERED: SODIUM CHLORIDE 1,000 ML IV STA (22:00)
[2021-09-30] MEDS ORDERED: MAGNESIUM SULFATE IN WATER 2 GM/50 ML IVPB IVPB ONE (22:20)
[2021-09-30] MEDS ORDERED: methylPREDNISolone NA SUCC 125 MG/2 ML VIAL ONE (22:20)
[2021-09-30 22:38] LABS: BASO % 1.3 % (0-2.0); EOS % 0.6 % (0-4.5); HEMATOCRIT 30.2 % (35.4-49); LYMPH % 21.5 % (8-40); MCH 25.6 pg (25.7-33.7); MCHC 33.1 g/dl (32.0-35.9); MEAN CELL VOLUME 77.4 fl (80-96); MEAN PLT VOLUME 6.1 fl (7.5-11.1); MONO % 15.4 % (3.8-10.2); NEUT % 61.2 % (42.8-82.8); PLATELET COUNT 464 10^3/uL (134-434); WHITE BLOOD COUNT 6.2 K/mm3 (4.0-10.0)
[2021-09-30 23:01] LABS: CALCIUM 8.4 mg/dL (8.5-10.1)
[2021-09-30 23:02] LABS: ALBUMIN 3.5 g/dl (3.4-5.0); BLOOD UREA NITROGEN 11.1 mg/dL (7-18)
[2021-09-30 23:05] LABS: CREATININE 0.6 mg/dL (0.55-1.3)
[2021-09-30 23:07] LABS: BILIRUBIN,TOTAL 0.4 mg/dL (0.2-1); TOT PROT 6.8 g/dl (6.4-8.2)
[2021-10-01] MEDS ORDERED: SODIUM CHLORIDE 500 ML IV STA (01:27)
[2021-10-01] MEDS ORDERED: FOLIC ACID INJECTION - 1 MG, THIAMINE HCL 100 MG, MULTIVIT INJECTION ADULT 10 ML in SOD... IVPB ONE (01:32)
[2021-10-01] MEDS ORDERED: ALBUTEROL SO4 2.5/IPRATROPIUM 0.5 INH SOL 3 ML VIAL.NEB. NEB SCH (01:45)
[2021-10-01] MEDS ORDERED: ALBUTEROL SO4 2.5/IPRATROPIUM 0.5 INH SOL 3 ML VIAL.NEB. NEB ONE (02:40)
[2021-10-01] MEDS ORDERED: NICOTINE 21 MG/24 HOURS TOPICAL PATCH TD PRN (06:34)
[2021-10-01] MEDS: ALBUTEROL SO4 2.5/IPRATROPIUM 0.5 INH SOL 3 ML VIAL.NEB. NEB SCH ×4 (08:05→20:53)
[2021-10-01 08:16] LABS: HEMOGLOBIN 9.7 GM/dL (11.7-16.9); MCH 26.1 pg (25.7-33.7); MCHC 33.4 g/dl (32.0-35.9); MEAN CELL VOLUME 78.1 fl (80-96); MEAN PLT VOLUME 6.2 fl (7.5-11.1); PLATELET COUNT 433 10^3/uL (134-434); RBC 3.71 M/mm3 (4.00-5.60)
[2021-10-01 08:47] LABS: BLOOD UREA NITROGEN 8.4 mg/dL (7-18)
[2021-10-01 08:49] LABS: ALBUMIN 3.3 g/dl (3.4-5.0); CALCIUM 8.3 mg/dL (8.5-10.1); MAGNESIUM 2.6 mg/dL (1.8-2.4)
[2021-10-01 08:50] LABS: PHOSPHOROUS 4.1 mg/dL (2.5-4.9)
[2021-10-01 08:51] LABS: CREATININE 0.6 mg/dL (0.55-1.3); TOT PROT 6.5 g/dl (6.4-8.2)
[2021-10-01 08:53] LABS: BILIRUBIN,TOTAL 0.4 mg/dL (0.2-1)
[2021-10-01 09:13] LABS: WHITE BLOOD COUNT 1.8 K/mm3 (4.0-10.0)
[2021-10-01] MEDS ORDERED: ALBUTEROL SO4 HFA INHALER IH PRN (09:54)
[2021-10-01] MEDS ORDERED: IRON SUCROSE INJECTION 100 MG in SODIUM CHLORIDE 95 ML IVPB ONE (09:59)
[2021-10-01] MEDS ORDERED: DOCUSATE SODIUM 100 MG CAPSULE (FP) PO ONE (10:00)
[2021-10-01] MEDS ORDERED: predniSONE 20 MG TABLET (UD) PO SCH (10:00)
[2021-10-01] MEDS: THIAMINE HCL 100 MG TABLET (FP) PO SCH (10:43)
[2021-10-01] MEDS: BUDESONIDE/FORMETEROL FUMARATE 160/4.5 mcg INHALER IH SCH ×2 (10:44→21:20)
[2021-10-01] MEDS: FOLIC ACID 1 MG TABLET (FP) PO SCH (10:44)
[2021-10-01] MEDS: methylPREDNISolone NA SUCC 40 MG/1 ML VIAL IVPUSH SCH ×2 (10:44→17:12)
[2021-10-01 11:06] LABS: ANISOCYTOSIS 1+; MACROCYTOSIS 0; OVALOCYTE 1+
[2021-10-01 12:45] LABS: N-TERMINAL BNP 162.5 pg/ml (5-125)
[2021-10-01 13:05] LABS: HEMATOCRIT 30.3 % (35.4-49); HEMOGLOBIN 9.9 GM/dL (11.7-16.9); MCH 25.3 pg (25.7-33.7); MCHC 32.5 g/dl (32.0-35.9); MEAN CELL VOLUME 77.9 fl (80-96); MEAN PLT VOLUME 6.7 fl (7.5-11.1); PLATELET COUNT 446 10^3/uL (134-434); RDW 15.7 % (11.9-15.9); WHITE BLOOD COUNT 3.6 K/mm3 (4.0-10.0)
[2021-10-01 13:25] LABS: CALCIUM 8.4 mg/dL (8.5-10.1)
[2021-10-01 13:26] LABS: BLOOD UREA NITROGEN 10.8 mg/dL (7-18)
[2021-10-01 13:29] LABS: CREATININE 0.6 mg/dL (0.55-1.3)
[2021-10-01 13:37] LABS: PH,URINE 5.5 (5.0-8.0); URINE APPEARANCE CLEAR; URINE BILIRUBIN NEGATIVE (NEGATIVE); URINE COLOR YELLOW; URINE GLUCOSE (UA) 2+ (NEGATIVE); URINE KETONE NEGATIVE (NEGATIVE); URINE LEUK ESTERASE NEGATIVE (NEGATIVE); URINE NITRITE NEGATIVE (NEGATIVE); URINE PROTEIN NEGATIVE (NEGATIVE); URINE UROBILINOGEN 0.2 mg/dL (0.2-1.0)
[2021-10-02] MEDS: methylPREDNISolone NA SUCC 40 MG/1 ML VIAL IVPUSH SCH ×3 (01:31→17:12)
[2021-10-02] MEDS: ALBUTEROL SO4 2.5/IPRATROPIUM 0.5 INH SOL 3 ML VIAL.NEB. NEB SCH ×4 (07:20→20:45)
[2021-10-02 09:06] LABS: BLOOD UREA NITROGEN 7.4 mg/dL (7-18)
[2021-10-02 09:09] LABS: CALCIUM 9.4 mg/dL (8.5-10.1); CREATININE 0.6 mg/dL (0.55-1.3)
[2021-10-02] MEDS: FOLIC ACID 1 MG TABLET (FP) PO SCH (09:16)
[2021-10-02] MEDS: BUDESONIDE/FORMETEROL FUMARATE 160/4.5 mcg INHALER IH SCH ×2 (09:17→22:09)
[2021-10-02] MEDS: THIAMINE HCL 100 MG TABLET (FP) PO SCH (09:17)
[2021-10-02 09:28] LABS: BASO % 0.2 % (0-2.0); HEMATOCRIT 30.2 % (35.4-49); HEMOGLOBIN 10.2 GM/dL (11.7-16.9); LYMPH % 9.8 % (8-40); MCH 26.1 pg (25.7-33.7); MCHC 33.8 g/dl (32.0-35.9); MEAN PLT VOLUME 6.4 fl (7.5-11.1); MONO % 4.1 % (3.8-10.2); NEUT % 85.9 % (42.8-82.8); PLATELET COUNT 459 10^3/uL (134-434); RBC 3.92 M/mm3 (4.00-5.60); RDW 16.1 % (11.9-15.9); WHITE BLOOD COUNT 8.6 K/mm3 (4.0-10.0)
[2021-10-02] MEDS: SODIUM CHLORIDE 1,000 ML IV SCH (15:54)
[2021-10-02 15:57] LABS: CREATININE, URINE RANDOM 63.4 mg/dL (30-150)
[2021-10-02] MEDS: amLODIPine BESYLATE 5 MG TABLET (FP) PO SCH (16:51)
[2021-10-03] MEDS: methylPREDNISolone NA SUCC 40 MG/1 ML VIAL IVPUSH SCH ×3 (01:17→17:23)
[2021-10-03 07:41] LABS: HEMOGLOBIN 9.7 GM/dL (11.7-16.9); MCH 25.3 pg (25.7-33.7); MCHC 32.5 g/dl (32.0-35.9); MEAN CELL VOLUME 77.9 fl (80-96); MEAN PLT VOLUME 6.4 fl (7.5-11.1); PLATELET COUNT 441 10^3/uL (134-434); RBC 3.85 M/mm3 (4.00-5.60); RDW 16.2 % (11.9-15.9); WHITE BLOOD COUNT 7.1 K/mm3 (4.0-10.0)
[2021-10-03] MEDS: ALBUTEROL SO4 2.5/IPRATROPIUM 0.5 INH SOL 3 ML VIAL.NEB. NEB SCH ×4 (07:48→20:25)
[2021-10-03 07:52] LABS: CALCIUM 8.9 mg/dL (8.5-10.1)
[2021-10-03 07:53] LABS: BLOOD UREA NITROGEN 12.6 mg/dL (7-18)
[2021-10-03 07:56] LABS: CREATININE 0.6 mg/dL (0.55-1.3)
[2021-10-03] MEDS: THIAMINE HCL 100 MG TABLET (FP) PO SCH (09:26)
[2021-10-03] MEDS: FOLIC ACID 1 MG TABLET (FP) PO SCH (09:27)
[2021-10-03] MEDS: amLODIPine BESYLATE 5 MG TABLET (FP) PO SCH (09:27)
[2021-10-03] MEDS: BUDESONIDE/FORMETEROL FUMARATE 160/4.5 mcg INHALER IH SCH ×2 (09:28→21:00)
[2021-10-03 14:06] LABS: INR 1.01 (0.83-1.09); PROTHROMBIN TIME (PATIENT) 11.6 SEC (9.7-13.0)
[2021-10-03 14:09] LABS: ACTIVATED PTT 27.9 SECONDS (25.2-36.5)
[2021-10-03 14:27] LABS: BASO % 0.1 % (0-2.0); HEMATOCRIT 31.1 % (35.4-49); HEMOGLOBIN 10.7 GM/dL (11.7-16.9); LYMPH % 2.9 % (8-40); MCH 26.7 pg (25.7-33.7); MCHC 34.4 g/dl (32.0-35.9); MEAN CELL VOLUME 77.6 fl (80-96); MEAN PLT VOLUME 6.4 fl (7.5-11.1); MONO % 7.4 % (3.8-10.2); NEUT % 89.6 % (42.8-82.8); PLATELET COUNT 486 10^3/uL (134-434); RBC 4.01 M/mm3 (4.00-5.60); RDW 16.6 % (11.9-15.9); WHITE BLOOD COUNT 7.3 K/mm3 (4.0-10.0)
[2021-10-03 14:29] LABS: ALBUMIN 3.6 g/dl (3.4-5.0); CALCIUM 8.8 mg/dL (8.5-10.1); MAGNESIUM 2.4 mg/dL (1.8-2.4)
[2021-10-03 14:32] LABS: CREATININE 0.7 mg/dL (0.55-1.3)
[2021-10-03 14:34] LABS: BILIRUBIN,TOTAL 0.4 mg/dL (0.2-1)
[2021-10-03] MEDS ORDERED: OLANZapine 5 MG TABLET PO SCH (22:00)
[2021-10-04] MEDS: SODIUM CHLORIDE 1,000 ML IV SCH (00:59)
[2021-10-04] MEDS: methylPREDNISolone NA SUCC 40 MG/1 ML VIAL IVPUSH SCH ×2 (01:14→11:38)
[2021-10-04] MEDS ORDERED: HALOPERIDOL LACTATE 5 MG/ML IM PRN (07:22)
[2021-10-04 07:43] LABS: CALCIUM 8.7 mg/dL (8.5-10.1)
[2021-10-04 07:44] LABS: BLOOD UREA NITROGEN 15.3 mg/dL (7-18)
[2021-10-04 07:47] LABS: CREATININE 0.5 mg/dL (0.55-1.3)
[2021-10-04] MEDS: ALBUTEROL SO4 2.5/IPRATROPIUM 0.5 INH SOL 3 ML VIAL.NEB. NEB SCH ×4 (08:46→20:27)
[2021-10-04] MEDS: amLODIPine BESYLATE 5 MG TABLET (FP) PO SCH (11:38)
[2021-10-04] MEDS: FOLIC ACID 1 MG TABLET (FP) PO SCH (11:38)
[2021-10-04] MEDS: OLANZapine 5 MG TABLET PO SCH ×2 (11:38→21:36)
[2021-10-04] MEDS: THIAMINE HCL 100 MG TABLET (FP) PO SCH (11:38)
[2021-10-04] MEDS: BUDESONIDE/FORMETEROL FUMARATE 160/4.5 mcg INHALER IH SCH ×2 (11:38→21:37)
[2021-10-04 12:43] LABS: ARTERIAL BLD GAS O2 SATURATION 98.1 % (95-98); ARTERIAL BLOOD GAS BASE EXCESS 2.2 mmol/L (-2-2); ARTERIAL BLOOD GAS PO2 105.6 mmHg (80-100); ARTERIAL BLOOD GAS pH 7.465 (7.350-7.450)
[2021-10-04 12:44] LABS: ALLENS TEST POSITIVE; PT'S TEMP NNP
[2021-10-04 13:52] LABS: HIV INTERPRETATION NEGATIVE (NEGATIVE)
[2021-10-05] MEDS: ALBUTEROL SO4 2.5/IPRATROPIUM 0.5 INH SOL 3 ML VIAL.NEB. NEB SCH ×3 (08:30→16:01)
[2021-10-05] MEDS: THIAMINE HCL 100 MG TABLET (FP) PO SCH (09:01)
[2021-10-05] MEDS: OLANZapine 5 MG TABLET PO SCH ×2 (09:01→22:42)
[2021-10-05] MEDS: amLODIPine BESYLATE 5 MG TABLET (FP) PO SCH (09:01)
[2021-10-05] MEDS: predniSONE 20 MG TABLET (UD) PO SCH ×2 (09:01→09:04)
[2021-10-05] MEDS: FOLIC ACID 1 MG TABLET (FP) PO SCH (09:01)
[2021-10-05] MEDS: BUDESONIDE/FORMETEROL FUMARATE 160/4.5 mcg INHALER IH SCH ×2 (09:03→22:42)
[2021-10-05 11:22] LABS: MCH 25.2 pg (25.7-33.7); MCHC 32.2 g/dl (32.0-35.9); MEAN CELL VOLUME 78.3 fl (80-96); MEAN PLT VOLUME 6.4 fl (7.5-11.1); PLATELET COUNT 417 10^3/uL (134-434); RBC 3.96 M/mm3 (4.00-5.60); RDW 16.3 % (11.9-15.9); WHITE BLOOD COUNT 11.7 K/mm3 (4.0-10.0)
[2021-10-05] MEDS ORDERED: ALBUTEROL SO4 2.5/IPRATROPIUM 0.5 INH SOL 3 ML VIAL.NEB. NEB PRN (16:50)
[2021-10-05 22:25] LABS: ANISOCYTOSIS 2+; MACROCYTOSIS 0; OVALOCYTE 2+; TEAR DROP CELLS 1+
[2021-10-06 09:22] LABS: ALBUMIN 3.1 g/dl (3.4-5.0); CALCIUM 8.1 mg/dL (8.5-10.1)
[2021-10-06 09:23] LABS: BLOOD UREA NITROGEN 16.3 mg/dL (7-18)
[2021-10-06 09:25] LABS: CREATININE 0.5 mg/dL (0.55-1.3)
[2021-10-06 09:27] LABS: BILIRUBIN,TOTAL 0.8 mg/dL (0.2-1); TOT PROT 6.1 g/dl (6.4-8.2)
[2021-10-06] MEDS: FOLIC ACID 1 MG TABLET (FP) PO SCH (11:18)
[2021-10-06] MEDS: amLODIPine BESYLATE 5 MG TABLET (FP) PO SCH (11:18)
[2021-10-06] MEDS: THIAMINE HCL 100 MG TABLET (FP) PO SCH (11:18)
[2021-10-06] MEDS: OLANZapine 5 MG TABLET PO SCH ×2 (11:19→21:49)
[2021-10-06] MEDS: BUDESONIDE/FORMETEROL FUMARATE 160/4.5 mcg INHALER IH SCH ×2 (11:19→22:30)
[2021-10-07] MEDS ORDERED: predniSONE 10 MG TABLET (UD) PO SCH (08:00)
[2021-10-07 08:22] LABS: ALBUMIN 3.1 g/dl (3.4-5.0); CALCIUM 8.6 mg/dL (8.5-10.1)
[2021-10-07 08:23] LABS: BLOOD UREA NITROGEN 17.2 mg/dL (7-18)
[2021-10-07 08:25] LABS: CREATININE 0.5 mg/dL (0.55-1.3)
[2021-10-07 08:27] LABS: BILIRUBIN,TOTAL 0.7 mg/dL (0.2-1); TOT PROT 6.2 g/dl (6.4-8.2)
[2021-10-07 08:58] LABS: HEMATOCRIT 30.9 % (35.4-49); HEMOGLOBIN 10.3 GM/dL (11.7-16.9); MCH 25.9 pg (25.7-33.7); MCHC 33.4 g/dl (32.0-35.9); MEAN CELL VOLUME 77.6 fl (80-96); MEAN PLT VOLUME 7.1 fl (7.5-11.1); PLATELET COUNT 350 10^3/uL (134-434); RBC 3.98 M/mm3 (4.00-5.60); RDW 16.8 % (11.9-15.9); WHITE BLOOD COUNT 10.2 K/mm3 (4.0-10.0)
[2021-10-07] MEDS ORDERED: cefTRIAXone SODIUM 1 GM VIAL ONE (09:53)
[2021-10-07] MEDS ORDERED: DEXTROSE 5%-WATER - 50 ML IVPB ONE (09:53)
[2021-10-07] MEDS: CEFTRIAXONE 1 GM in DEXTROSE 5%-WATER - 50 ML IVPB SCH (09:59)
[2021-10-07] MEDS: OLANZapine 5 MG TABLET PO SCH (10:00)
[2021-10-07] MEDS: amLODIPine BESYLATE 5 MG TABLET (FP) PO SCH (10:00)
[2021-10-07] MEDS: THIAMINE HCL 100 MG TABLET (FP) PO SCH (10:00)
[2021-10-07] MEDS: FOLIC ACID 1 MG TABLET (FP) PO SCH (10:01)
[2021-10-07] MEDS: BUDESONIDE/FORMETEROL FUMARATE 160/4.5 mcg INHALER IH SCH ×2 (10:01→21:14)
[2021-10-07] MEDS ORDERED: OLANZapine 10 MG TABLET PO SCH (14:45)
[2021-10-07 17:40] LABS: URINE APPEARANCE CLOUDY; URINE BILIRUBIN NEGATIVE (NEGATIVE); URINE COLOR YELLOW; URINE GLUCOSE (UA) NEGATIVE (NEGATIVE); URINE KETONE TRACE (NEGATIVE); URINE LEUK ESTERASE NEGATIVE (NEGATIVE); URINE NITRITE NEGATIVE (NEGATIVE); URINE PROTEIN NEGATIVE (NEGATIVE)
[2021-10-07 18:34] LABS: MAGNESIUM 2.4 mg/dL (1.8-2.4)
[2021-10-08] MEDS ORDERED: DEXTROSE 5%-WATER - 50 ML IVPB ONE (07:44)
[2021-10-08] MEDS ORDERED: cefTRIAXone SODIUM 1 GM VIAL ONE (07:44)
[2021-10-08] MEDS: amLODIPine BESYLATE 5 MG TABLET (FP) PO SCH (09:00)
[2021-10-08] MEDS: THIAMINE HCL 100 MG TABLET (FP) PO SCH (09:01)
[2021-10-08] MEDS: FOLIC ACID 1 MG TABLET (FP) PO SCH (09:01)
[2021-10-08] MEDS: BUDESONIDE/FORMETEROL FUMARATE 160/4.5 mcg INHALER IH SCH ×2 (09:04→22:04)
[2021-10-08] MEDS: CEFTRIAXONE 1 GM in DEXTROSE 5%-WATER - 50 ML IVPB SCH (09:39)
[2021-10-08 10:07] LABS: BASO % 0.3 % (0-2.0); EOS % 0.5 % (0-4.5); HEMATOCRIT 29.8 % (35.4-49); HEMOGLOBIN 9.5 GM/dL (11.7-16.9); LYMPH % 9.9 % (8-40); MCH 25.2 pg (25.7-33.7); MEAN CELL VOLUME 78.6 fl (80-96); MEAN PLT VOLUME 7.1 fl (7.5-11.1); MONO % 10.7 % (3.8-10.2); NEUT % 78.6 % (42.8-82.8); PLATELET COUNT 384 10^3/uL (134-434); RBC 3.79 M/mm3 (4.00-5.60); RDW 16.5 % (11.9-15.9); WHITE BLOOD COUNT 8.4 K/mm3 (4.0-10.0)
[2021-10-08 10:16] LABS: INR 1.13 (0.83-1.09)
[2021-10-08 10:19] LABS: ACTIVATED PTT 29.7 SECONDS (25.2-36.5)
[2021-10-08 10:26] LABS: CALCIUM 7.9 mg/dL (8.5-10.1)
[2021-10-08 10:27] LABS: ALBUMIN 2.7 g/dl (3.4-5.0); BLOOD UREA NITROGEN 21.5 mg/dL (7-18)
[2021-10-08 10:30] LABS: CREATININE 0.5 mg/dL (0.55-1.3)
[2021-10-08 10:31] LABS: BILIRUBIN,TOTAL 0.4 mg/dL (0.2-1); TOT PROT 5.8 g/dl (6.4-8.2)
[2021-10-08] MEDS ORDERED: IRON SUCROSE INJECTION 200 MG in SODIUM CHLORIDE 90 ML IVPB ONE (11:15)
[2021-10-08] MEDS: CYANOCOBALAMIN 1,000 MCG TABLET (FP) PO SCH (11:53)
[2021-10-08] MEDS: ACETAMINOPHEN 325 MG TABLET (FP) PO PRN (15:01)
[2021-10-08] MEDS: PANTOPRAZOLE 40 MG TABLET PO SCH (22:01)
[2021-10-08] MEDS: OLANZapine 5 MG TABLET PO SCH (22:01)
[2021-10-08] MEDS: POLYETHYLENE GLYCOL (HEALTHYLAX) 3350 17 GM PACKET PO SCH (22:01)
[2021-10-09 07:31] LABS: BASO % 0.3 % (0-2.0); HEMATOCRIT 28.5 % (35.4-49); HEMOGLOBIN 9.4 GM/dL (11.7-16.9); LYMPH % 16.1 % (8-40); MCH 25.9 pg (25.7-33.7); MCHC 33.1 g/dl (32.0-35.9); MEAN CELL VOLUME 78.1 fl (80-96); MEAN PLT VOLUME 6.7 fl (7.5-11.1); NEUT % 70.6 % (42.8-82.8); PLATELET COUNT 381 10^3/uL (134-434); RBC 3.65 M/mm3 (4.00-5.60); RDW 16.9 % (11.9-15.9); WHITE BLOOD COUNT 7.5 K/mm3 (4.0-10.0)
[2021-10-09 07:59] LABS: CALCIUM 8.1 mg/dL (8.5-10.1)
[2021-10-09 08:00] LABS: ALBUMIN 2.6 g/dl (3.4-5.0); BLOOD UREA NITROGEN 22.4 mg/dL (7-18)
[2021-10-09 08:03] LABS: CREATININE 0.4 mg/dL (0.55-1.3)
[2021-10-09 08:04] LABS: BILIRUBIN,TOTAL 0.5 mg/dL (0.2-1); TOT PROT 5.6 g/dl (6.4-8.2)
[2021-10-09] MEDS ORDERED: DEXTROSE 5%-WATER - 50 ML IVPB ONE (10:13)
[2021-10-09] MEDS ORDERED: cefTRIAXone SODIUM 1 GM VIAL ONE (10:13)
[2021-10-09] MEDS: THIAMINE HCL 100 MG TABLET (FP) PO SCH (10:32)
[2021-10-09] MEDS: CEFTRIAXONE 1 GM in DEXTROSE 5%-WATER - 50 ML IVPB SCH (10:32)
[2021-10-09] MEDS: FOLIC ACID 1 MG TABLET (FP) PO SCH (10:32)
[2021-10-09] MEDS: amLODIPine BESYLATE 5 MG TABLET (FP) PO SCH (10:32)
[2021-10-09] MEDS: CYANOCOBALAMIN 1,000 MCG TABLET (FP) PO SCH (10:32)
[2021-10-09] MEDS: POLYETHYLENE GLYCOL (HEALTHYLAX) 3350 17 GM PACKET PO SCH ×2 (10:32→21:44)
[2021-10-09] MEDS: PANTOPRAZOLE 40 MG TABLET PO SCH ×2 (10:33→21:44)
[2021-10-09] MEDS: BUDESONIDE/FORMETEROL FUMARATE 160/4.5 mcg INHALER IH SCH ×2 (10:35→21:45)
[2021-10-09] MEDS: OLANZapine 5 MG TABLET PO SCH (21:44)
[2021-10-10] MEDS: POLYETHYLENE GLYCOL (HEALTHYLAX) 3350 17 GM PACKET PO SCH ×3 (06:04→22:31)
[2021-10-10 06:39] LABS: BLOOD UREA NITROGEN 21.4 mg/dL (7-18); CALCIUM 8.6 mg/dL (8.5-10.1)
[2021-10-10 06:43] LABS: CREATININE 0.5 mg/dL (0.55-1.3)
[2021-10-10 06:44] LABS: BILIRUBIN,TOTAL 0.3 mg/dL (0.2-1)
[2021-10-10 07:09] LABS: BASO % 1.5 % (0-2.0); EOS % 1.7 % (0-4.5); HEMATOCRIT 29.1 % (35.4-49); HEMOGLOBIN 9.9 GM/dL (11.7-16.9); LYMPH % 16.9 % (8-40); MCH 26.4 pg (25.7-33.7); MCHC 33.8 g/dl (32.0-35.9); MEAN CELL VOLUME 78.1 fl (80-96); MEAN PLT VOLUME 6.8 fl (7.5-11.1); MONO % 10.1 % (3.8-10.2); NEUT % 69.8 % (42.8-82.8); PLATELET COUNT 404 10^3/uL (134-434); RBC 3.73 M/mm3 (4.00-5.60)
[2021-10-10 08:06] LABS: CARCINOEMBRYONIC ANTIGEN 2.3 ng/mL (0.0-4.7)
[2021-10-10] MEDS ORDERED: DEXTROSE 5%-WATER - 50 ML IVPB ONE (09:45)
[2021-10-10] MEDS ORDERED: cefTRIAXone SODIUM 1 GM VIAL ONE (09:45)
[2021-10-10] MEDS: CEFTRIAXONE 1 GM in DEXTROSE 5%-WATER - 50 ML IVPB SCH (09:53)
[2021-10-10] MEDS: FOLIC ACID 1 MG TABLET (FP) PO SCH (09:54)
[2021-10-10] MEDS: PANTOPRAZOLE 40 MG TABLET PO SCH ×2 (09:54→22:30)
[2021-10-10] MEDS: CYANOCOBALAMIN 1,000 MCG TABLET (FP) PO SCH (09:54)
[2021-10-10] MEDS: BUDESONIDE/FORMETEROL FUMARATE 160/4.5 mcg INHALER IH SCH ×2 (09:54→22:30)
[2021-10-10] MEDS: THIAMINE HCL 100 MG TABLET (FP) PO SCH (09:54)
[2021-10-10] MEDS: amLODIPine BESYLATE 5 MG TABLET (FP) PO SCH (09:54)
[2021-10-10] MEDS ORDERED: PEG 3350/NA SULF BICARB CL/KCL 4000 ML SOLN.RECON PO ONE (10:00)
[2021-10-10] MEDS ORDERED: IRON SUCROSE INJECTION 200 MG in SODIUM CHLORIDE 90 ML IVPB ONE (10:00)
[2021-10-10 18:10] LABS: GLIADIN ANTIBODY IGA 3 units (0-19); GLIADIN ANTIBODY IGG 2 units (0-19); TRANSGLUTAMINASE IGG 6 U/mL (0-5)
[2021-10-10] MEDS ORDERED: BISACODYL 5 MG TABLET.DR (FP) PO ONE (20:00)
[2021-10-10] MEDS: OLANZapine 5 MG TABLET PO SCH (22:30)
[2021-10-11] MEDS: POLYETHYLENE GLYCOL (HEALTHYLAX) 3350 17 GM PACKET PO SCH ×3 (06:32→21:34)
[2021-10-11 07:08] LABS: SARS-CoV-2 NAA Not Detected (Not Detected)
[2021-10-11] MEDS ORDERED: cefTRIAXone SODIUM 1 GM VIAL ONE (08:00)
[2021-10-11] MEDS ORDERED: DEXTROSE 5%-WATER - 50 ML IVPB ONE (08:01)
[2021-10-11 09:24] LABS: BASO % 0.8 % (0-2.0); HEMATOCRIT 30.2 % (35.4-49); HEMOGLOBIN 9.9 GM/dL (11.7-16.9); LYMPH % 17.4 % (8-40); MCH 25.9 pg (25.7-33.7); MCHC 32.9 g/dl (32.0-35.9); MEAN CELL VOLUME 78.8 fl (80-96); MEAN PLT VOLUME 6.5 fl (7.5-11.1); MONO % 7.9 % (3.8-10.2); NEUT % 72.9 % (42.8-82.8); PLATELET COUNT 451 10^3/uL (134-434); RBC 3.84 M/mm3 (4.00-5.60); RDW 16.6 % (11.9-15.9); WHITE BLOOD COUNT 6.2 K/mm3 (4.0-10.0)
[2021-10-11 09:31] LABS: INR 1.25 (0.83-1.09); PROTHROMBIN TIME (PATIENT) 14.4 SEC (9.7-13.0)
[2021-10-11] MEDS: THIAMINE HCL 100 MG TABLET (FP) PO SCH (09:35)
[2021-10-11] MEDS: PANTOPRAZOLE 40 MG TABLET PO SCH ×2 (09:35→21:34)
[2021-10-11] MEDS: FOLIC ACID 1 MG TABLET (FP) PO SCH (09:35)
[2021-10-11] MEDS: amLODIPine BESYLATE 5 MG TABLET (FP) PO SCH (09:35)
[2021-10-11] MEDS: CYANOCOBALAMIN 1,000 MCG TABLET (FP) PO SCH (09:35)
[2021-10-11] MEDS: BUDESONIDE/FORMETEROL FUMARATE 160/4.5 mcg INHALER IH SCH ×2 (09:36→21:36)
[2021-10-11 09:59] LABS: ALBUMIN 2.9 g/dl (3.4-5.0); CALCIUM 8.7 mg/dL (8.5-10.1)
[2021-10-11 10:00] LABS: MAGNESIUM 2.1 mg/dL (1.8-2.4)
[2021-10-11 10:02] LABS: CREATININE 0.5 mg/dL (0.55-1.3); PHOSPHOROUS 2.8 mg/dL (2.5-4.9)
[2021-10-11 10:03] LABS: BILIRUBIN,TOTAL 0.6 mg/dL (0.2-1); TOT PROT 5.8 g/dl (6.4-8.2)
[2021-10-11] MEDS: CEFTRIAXONE 1 GM in DEXTROSE 5%-WATER - 50 ML IVPB SCH (10:29)
[2021-10-11] MEDS: OLANZapine 5 MG TABLET PO SCH (21:34)
[2021-10-12] MEDS: POLYETHYLENE GLYCOL (HEALTHYLAX) 3350 17 GM PACKET PO SCH ×3 (06:23→21:58)
[2021-10-12 08:38] LABS: BASO % 1.1 % (0-2.0); EOS % 0.6 % (0-4.5); HEMATOCRIT 30.6 % (35.4-49); HEMOGLOBIN 10.3 GM/dL (11.7-16.9); LYMPH % 16.8 % (8-40); MCH 26.4 pg (25.7-33.7); MCHC 33.5 g/dl (32.0-35.9); MEAN CELL VOLUME 78.6 fl (80-96); MEAN PLT VOLUME 6.7 fl (7.5-11.1); NEUT % 74.5 % (42.8-82.8); PLATELET COUNT 454 10^3/uL (134-434); RDW 16.9 % (11.9-15.9)
[2021-10-12 08:57] LABS: ALBUMIN 2.8 g/dl (3.4-5.0); CALCIUM 8.5 mg/dL (8.5-10.1); MAGNESIUM 2.2 mg/dL (1.8-2.4)
[2021-10-12 08:59] LABS: CREATININE 0.4 mg/dL (0.55-1.3); PHOSPHOROUS 2.9 mg/dL (2.5-4.9)
[2021-10-12] MEDS ORDERED: IRON SUCROSE INJECTION 200 MG in SODIUM CHLORIDE 90 ML IVPB ONE (09:00)
[2021-10-12 09:02] LABS: BILIRUBIN,TOTAL 0.3 mg/dL (0.2-1); TOT PROT 6.1 g/dl (6.4-8.2)
[2021-10-12] MEDS: PANTOPRAZOLE 40 MG TABLET PO SCH ×2 (09:20→21:58)
[2021-10-12] MEDS: CYANOCOBALAMIN 1,000 MCG TABLET (FP) PO SCH (09:20)
[2021-10-12] MEDS: FOLIC ACID 1 MG TABLET (FP) PO SCH (09:20)
[2021-10-12] MEDS: amLODIPine BESYLATE 5 MG TABLET (FP) PO SCH (09:20)
[2021-10-12] MEDS: THIAMINE HCL 100 MG TABLET (FP) PO SCH (09:20)
[2021-10-12] MEDS: BUDESONIDE/FORMETEROL FUMARATE 160/4.5 mcg INHALER IH SCH ×2 (09:21→21:58)
[2021-10-12] MEDS: OLANZapine 5 MG TABLET PO SCH (21:58)
[2021-10-13] MEDS: POLYETHYLENE GLYCOL (HEALTHYLAX) 3350 17 GM PACKET PO SCH ×3 (06:21→21:02)
[2021-10-13 08:37] LABS: BASO % 1.4 % (0-2.0); EOS % 1.1 % (0-4.5); HEMATOCRIT 31.3 % (35.4-49); HEMOGLOBIN 10.2 GM/dL (11.7-16.9); LYMPH % 19.7 % (8-40); MCHC 32.8 g/dl (32.0-35.9); MEAN CELL VOLUME 79.3 fl (80-96); MEAN PLT VOLUME 6.9 fl (7.5-11.1); MONO % 7.8 % (3.8-10.2); PLATELET COUNT 463 10^3/uL (134-434); RBC 3.94 M/mm3 (4.00-5.60); RDW 17.2 % (11.9-15.9); WHITE BLOOD COUNT 5.7 K/mm3 (4.0-10.0)
[2021-10-13 08:52] LABS: CALCIUM 8.5 mg/dL (8.5-10.1)
[2021-10-13 08:53] LABS: ALBUMIN 2.7 g/dl (3.4-5.0); BLOOD UREA NITROGEN 16.8 mg/dL (7-18); MAGNESIUM 2.2 mg/dL (1.8-2.4)
[2021-10-13 08:55] LABS: CREATININE 0.4 mg/dL (0.55-1.3)
[2021-10-13 08:57] LABS: BILIRUBIN,TOTAL 0.3 mg/dL (0.2-1); TOT PROT 5.8 g/dl (6.4-8.2)
[2021-10-13] MEDS: PANTOPRAZOLE 40 MG TABLET PO SCH ×2 (09:58→21:02)
[2021-10-13] MEDS: THIAMINE HCL 100 MG TABLET (FP) PO SCH (09:58)
[2021-10-13] MEDS: NICOTINE 21 MG/24 HOURS TOPICAL PATCH TD PRN (09:58)
[2021-10-13] MEDS: CYANOCOBALAMIN 1,000 MCG TABLET (FP) PO SCH (09:59)
[2021-10-13] MEDS: BUDESONIDE/FORMETEROL FUMARATE 160/4.5 mcg INHALER IH SCH ×2 (09:59→21:07)
[2021-10-13] MEDS: FOLIC ACID 1 MG TABLET (FP) PO SCH (09:59)
[2021-10-13] MEDS: amLODIPine BESYLATE 5 MG TABLET (FP) PO SCH (09:59)
[2021-10-13] MEDS ORDERED: PEG 3350/NA SULF BICARB CL/KCL 4000 ML SOLN.RECON PO ONE (10:00)
[2021-10-13] MEDS ORDERED: BISACODYL 5 MG TABLET.DR (FP) PO ONE (20:00)
[2021-10-13] MEDS: OLANZapine 5 MG TABLET PO SCH (21:02)
[2021-10-14] MEDS: POLYETHYLENE GLYCOL (HEALTHYLAX) 3350 17 GM PACKET PO SCH (05:03)
[2021-10-14] MEDS: BUDESONIDE/FORMETEROL FUMARATE 160/4.5 mcg INHALER IH SCH ×2 (09:05→22:09)
[2021-10-14] MEDS: CYANOCOBALAMIN 1,000 MCG TABLET (FP) PO SCH (09:13)
[2021-10-14] MEDS: amLODIPine BESYLATE 5 MG TABLET (FP) PO SCH (09:13)
[2021-10-14] MEDS: FOLIC ACID 1 MG TABLET (FP) PO SCH (09:13)
[2021-10-14] MEDS: THIAMINE HCL 100 MG TABLET (FP) PO SCH (09:13)
[2021-10-14] MEDS: PANTOPRAZOLE 40 MG TABLET PO SCH ×2 (09:13→22:09)
[2021-10-14 09:40] LABS: BASO % 0.9 % (0-2.0); EOS % 0.5 % (0-4.5); HEMATOCRIT 30.9 % (35.4-49); HEMOGLOBIN 10.3 GM/dL (11.7-16.9); LYMPH % 14.3 % (8-40); MCH 26.3 pg (25.7-33.7); MCHC 33.4 g/dl (32.0-35.9); MEAN CELL VOLUME 78.9 fl (80-96); MEAN PLT VOLUME 6.5 fl (7.5-11.1); MONO % 5.8 % (3.8-10.2); NEUT % 78.5 % (42.8-82.8); PLATELET COUNT 471 10^3/uL (134-434); RBC 3.92 M/mm3 (4.00-5.60); RDW 17.5 % (11.9-15.9); WHITE BLOOD COUNT 5.5 K/mm3 (4.0-10.0)
[2021-10-14 09:46] LABS: INR 1.12 (0.83-1.09); PROTHROMBIN TIME (PATIENT) 12.9 SEC (9.7-13.0)
[2021-10-14 10:03] LABS: BLOOD UREA NITROGEN 8.3 mg/dL (7-18); CALCIUM 8.7 mg/dL (8.5-10.1); MAGNESIUM 1.8 mg/dL (1.8-2.4)
[2021-10-14 10:06] LABS: CREATININE 0.4 mg/dL (0.55-1.3); PHOSPHOROUS 3.2 mg/dL (2.5-4.9)
[2021-10-14 10:07] LABS: BILIRUBIN,TOTAL 0.2 mg/dL (0.2-1); TOT PROT 5.8 g/dl (6.4-8.2)
[2021-10-14] MEDS ORDERED: IRON SUCROSE INJECTION 200 MG in SODIUM CHLORIDE 90 ML IVPB ONE (14:00)
[2021-10-14] MEDS: OLANZapine 5 MG TABLET PO SCH (22:09)
[2021-10-15 06:08] LABS: SARS-CoV-2 NAA Not Detected (Not Detected)
[2021-10-15] MEDS: CYANOCOBALAMIN 1,000 MCG TABLET (FP) PO SCH (09:12)
[2021-10-15] MEDS: amLODIPine BESYLATE 5 MG TABLET (FP) PO SCH (09:12)
[2021-10-15] MEDS: THIAMINE HCL 100 MG TABLET (FP) PO SCH (09:12)
[2021-10-15] MEDS: PANTOPRAZOLE 40 MG TABLET PO SCH ×2 (09:12→22:36)
[2021-10-15] MEDS: FOLIC ACID 1 MG TABLET (FP) PO SCH (09:12)
[2021-10-15] MEDS: POLYETHYLENE GLYCOL (HEALTHYLAX) 3350 17 GM PACKET PO SCH (09:13)
[2021-10-15] MEDS: BUDESONIDE/FORMETEROL FUMARATE 160/4.5 mcg INHALER IH SCH ×2 (09:13→22:35)
[2021-10-15] MEDS: OLANZapine 5 MG TABLET PO SCH (22:36)
[2021-10-16] MEDS: NICOTINE 21 MG/24 HOURS TOPICAL PATCH TD PRN (09:42)
[2021-10-16] MEDS: THIAMINE HCL 100 MG TABLET (FP) PO SCH (09:43)
[2021-10-16] MEDS: FOLIC ACID 1 MG TABLET (FP) PO SCH (09:43)
[2021-10-16] MEDS: CYANOCOBALAMIN 1,000 MCG TABLET (FP) PO SCH (09:43)
[2021-10-16] MEDS: amLODIPine BESYLATE 5 MG TABLET (FP) PO SCH (09:44)
[2021-10-16] MEDS: PANTOPRAZOLE 40 MG TABLET PO SCH ×2 (09:44→21:16)
[2021-10-16] MEDS: POLYETHYLENE GLYCOL (HEALTHYLAX) 3350 17 GM PACKET PO SCH (09:44)
[2021-10-16] MEDS: BUDESONIDE/FORMETEROL FUMARATE 160/4.5 mcg INHALER IH SCH ×2 (09:45→21:16)
[2021-10-16] MEDS: OLANZapine 5 MG TABLET PO SCH (21:16)
[2021-10-17] MEDS: PANTOPRAZOLE 40 MG TABLET PO SCH ×2 (11:14→21:28)
[2021-10-17] MEDS: THIAMINE HCL 100 MG TABLET (FP) PO SCH (11:14)
[2021-10-17] MEDS: FOLIC ACID 1 MG TABLET (FP) PO SCH (11:14)
[2021-10-17] MEDS: CYANOCOBALAMIN 1,000 MCG TABLET (FP) PO SCH (11:15)
[2021-10-17] MEDS: amLODIPine BESYLATE 5 MG TABLET (FP) PO SCH (11:15)
[2021-10-17] MEDS: POLYETHYLENE GLYCOL (HEALTHYLAX) 3350 17 GM PACKET PO SCH (11:15)
[2021-10-17] MEDS: BUDESONIDE/FORMETEROL FUMARATE 160/4.5 mcg INHALER IH SCH ×2 (11:16→21:25)
[2021-10-17] MEDS: OLANZapine 5 MG TABLET PO SCH (21:28)
[2021-10-18] MEDS: CYANOCOBALAMIN 1,000 MCG TABLET (FP) PO SCH (08:59)
[2021-10-18] MEDS: THIAMINE HCL 100 MG TABLET (FP) PO SCH (08:59)
[2021-10-18] MEDS: POLYETHYLENE GLYCOL (HEALTHYLAX) 3350 17 GM PACKET PO SCH (08:59)
[2021-10-18] MEDS: FOLIC ACID 1 MG TABLET (FP) PO SCH (08:59)
[2021-10-18] MEDS: BUDESONIDE/FORMETEROL FUMARATE 160/4.5 mcg INHALER IH SCH ×2 (08:59→21:45)
[2021-10-18] MEDS: amLODIPine BESYLATE 5 MG TABLET (FP) PO SCH (08:59)
[2021-10-18] MEDS: PANTOPRAZOLE 40 MG TABLET PO SCH ×2 (08:59→21:44)
[2021-10-18] MEDS: OLANZapine 5 MG TABLET PO SCH (21:44)
[2021-10-19] MEDS: POLYETHYLENE GLYCOL (HEALTHYLAX) 3350 17 GM PACKET PO SCH (09:59)
[2021-10-19] MEDS: THIAMINE HCL 100 MG TABLET (FP) PO SCH (09:59)
[2021-10-19] MEDS: CYANOCOBALAMIN 1,000 MCG TABLET (FP) PO SCH (09:59)
[2021-10-19] MEDS: PANTOPRAZOLE 40 MG TABLET PO SCH ×2 (09:59→21:30)
[2021-10-19] MEDS: amLODIPine BESYLATE 5 MG TABLET (FP) PO SCH (09:59)
[2021-10-19] MEDS: FOLIC ACID 1 MG TABLET (FP) PO SCH (09:59)
[2021-10-19] MEDS: BUDESONIDE/FORMETEROL FUMARATE 160/4.5 mcg INHALER IH SCH ×2 (10:00→21:30)
[2021-10-19] MEDS: OLANZapine 5 MG TABLET PO SCH (21:30)
[2021-10-20] MEDS: CYANOCOBALAMIN 1,000 MCG TABLET (FP) PO SCH (09:22)
[2021-10-20] MEDS: amLODIPine BESYLATE 5 MG TABLET (FP) PO SCH (09:22)
[2021-10-20] MEDS: POLYETHYLENE GLYCOL (HEALTHYLAX) 3350 17 GM PACKET PO SCH (09:22)
[2021-10-20] MEDS: THIAMINE HCL 100 MG TABLET (FP) PO SCH (09:22)
[2021-10-20] MEDS: FOLIC ACID 1 MG TABLET (FP) PO SCH (09:22)
[2021-10-20] MEDS: PANTOPRAZOLE 40 MG TABLET PO SCH ×2 (09:22→21:32)
[2021-10-20] MEDS: BUDESONIDE/FORMETEROL FUMARATE 160/4.5 mcg INHALER IH SCH ×2 (09:23→21:32)
[2021-10-20 11:55] VITALS: BMI 13.4
[2021-10-20] MEDS: OLANZapine 5 MG TABLET PO SCH (21:32)
[2021-10-21] MEDS: amLODIPine BESYLATE 5 MG TABLET (FP) PO SCH (10:54)
[2021-10-21] MEDS: MULTIVITAMINS (DAILY MVI) TABLET (FP) PO SCH (10:54)
[2021-10-21] MEDS: POLYETHYLENE GLYCOL (HEALTHYLAX) 3350 17 GM PACKET PO SCH (10:54)
[2021-10-21] MEDS: CYANOCOBALAMIN 1,000 MCG TABLET (FP) PO SCH (10:54)
[2021-10-21] MEDS: NICOTINE 21 MG/24 HOURS TOPICAL PATCH TD PRN (10:54)
[2021-10-21] MEDS: PANTOPRAZOLE 40 MG TABLET PO SCH ×2 (10:54→22:39)
[2021-10-21] MEDS: THIAMINE HCL 100 MG TABLET (FP) PO SCH (10:54)
[2021-10-21] MEDS: FOLIC ACID 1 MG TABLET (FP) PO SCH (10:54)
[2021-10-21] MEDS: BUDESONIDE/FORMETEROL FUMARATE 160/4.5 mcg INHALER IH SCH ×2 (10:55→22:41)
[2021-10-21] MEDS: OLANZapine 5 MG TABLET PO SCH (22:39)
[2021-10-21] MEDS: ACETAMINOPHEN 325 MG TABLET (FP) PO PRN (22:39)
[2021-10-22] MEDS ORDERED: MELATONIN 5 MG TABLETS PO ONE (01:10)
[2021-10-22] MEDS ORDERED: HALOPERIDOL LACTATE 5 MG/ML IM ONE (01:19)
[2021-10-22] MEDS: FOLIC ACID 1 MG TABLET (FP) PO SCH (09:20)
[2021-10-22] MEDS: POLYETHYLENE GLYCOL (HEALTHYLAX) 3350 17 GM PACKET PO SCH (09:21)
[2021-10-22] MEDS: amLODIPine BESYLATE 5 MG TABLET (FP) PO SCH (09:21)
[2021-10-22] MEDS: THIAMINE HCL 100 MG TABLET (FP) PO SCH (09:21)
[2021-10-22] MEDS: CYANOCOBALAMIN 1,000 MCG TABLET (FP) PO SCH (09:21)
[2021-10-22] MEDS: PANTOPRAZOLE 40 MG TABLET PO SCH ×2 (09:21→21:51)
[2021-10-22] MEDS: MULTIVITAMINS (DAILY MVI) TABLET (FP) PO SCH (09:21)
[2021-10-22] MEDS: BUDESONIDE/FORMETEROL FUMARATE 160/4.5 mcg INHALER IH SCH ×2 (09:22→23:00)
[2021-10-22] MEDS: ACETAMINOPHEN 325 MG TABLET (FP) PO PRN (21:51)
[2021-10-22] MEDS: OLANZapine 5 MG TABLET PO SCH (21:51)
[2021-10-23] MEDS: POLYETHYLENE GLYCOL (HEALTHYLAX) 3350 17 GM PACKET PO SCH (09:43)
[2021-10-23] MEDS: PANTOPRAZOLE 40 MG TABLET PO SCH (09:43)
[2021-10-23] MEDS: amLODIPine BESYLATE 5 MG TABLET (FP) PO SCH (09:43)
[2021-10-23] MEDS: NICOTINE 21 MG/24 HOURS TOPICAL PATCH TD PRN (09:43)
[2021-10-23] MEDS: THIAMINE HCL 100 MG TABLET (FP) PO SCH (09:43)
[2021-10-23] MEDS: BUDESONIDE/FORMETEROL FUMARATE 160/4.5 mcg INHALER IH SCH (09:44)
[2021-10-23] MEDS: FOLIC ACID 1 MG TABLET (FP) PO SCH (09:44)
[2021-10-23] MEDS: MULTIVITAMINS (DAILY MVI) TABLET (FP) PO SCH (09:44)
[2021-10-23] MEDS: CYANOCOBALAMIN 1,000 MCG TABLET (FP) PO SCH (09:44)
[2021-10-23 21:55] VITALS: BP 142/83; PULSE 93; TEMP 98.4
== END 2021-10-23 21:30 | DRG 190 ==
LOC: JER 21:36 → JERBED 10-01 00:26 → J7W 10-01 09:48
PROVIDERS: ADMIT Hospitalist; ATTEND Internal Medicine
PROC: 0HBQXZZ Excision of Finger Nail, External Approach (ICD-10-PCS; 2021-10-08)
PROC: 0DB58ZX Excision of Esophagus, Via Natural or Artificial Opening Endoscopic, Diagnostic (ICD-10-PCS; 2021-10-14)
PROC: 0DD98ZX Extraction of Duodenum, Via Natural or Artificial Opening Endoscopic, Diagnostic (ICD-10-PCS; 2021-10-14)
PROC: 0DB68ZX Excision of Stomach, Via Natural or Artificial Opening Endoscopic, Diagnostic (ICD-10-PCS; 2021-10-14)
PROC: 0DBL8ZX Excision of Transverse Colon, Via Natural or Artificial Opening Endoscopic, Diagnostic (ICD-10-PCS; principal; 2021-10-14 12:00)
DX: J43.9 Emphysema, unspecified (principal); J69.0 Pneumonitis due to inhalation of food and vomit; E43 Unspecified severe protein-calorie malnutrition; K55.21 Angiodysplasia of colon with hemorrhage; E87.1 Hypo-osmolality and hyponatremia; Z68.1 Body mass index [BMI] 19.9 or less, adult; R64 Cachexia; R44.2 Other hallucinations; F17.210 Nicotine dependence, cigarettes, uncomplicated; R62.7 Adult failure to thrive; D50.9 Iron deficiency anemia, unspecified; B35.1 Tinea unguium; K21.9 Gastro-esophageal reflux disease without esophagitis; D72.819 Decreased white blood cell count, unspecified; D72.829 Elevated white blood cell count, unspecified; K57.90 Diverticulosis of intestine, part unspecified, without perforation or abscess without bleeding; K64.8 Other hemorrhoids; D12.3 Benign neoplasm of transverse colon; K44.9 Diaphragmatic hernia without obstruction or gangrene; K29.50 Unspecified chronic gastritis without bleeding
CPT/HCPCS: 36415; 36600; 70450-TC; 71045-TC-FY; 71260-TC; 72125-TC; 74176-TC; 80048; 80053; 81003; 82105; 82140; 82378; 82533; 82570; 82607; 82728; 82784; 82803; 82962; 83036; 83516; 83540; 83550; 83735; 83880; 83930; 83935; 84100; 84155; 84165; 84300; 84443; 84484; 85025; 85027; 85045; 85610; 85730; 86140; 86301; 86334; 86480; 86780; 86850; 86900; 86901; 87070; 87116; 87186; 87205; 87206; 87389; 87899; 88305-TC; 93005; 93010; 94640; 97116-GP; 97161-GP; 99285-25; C9803-CS; J1756; U0003; U0005

== ENCOUNTER 2021-10-25 16:02 | Emergency (ER) | payer OTHER ==
[2021-10-25 16:41] VITALS: TEMP 98.5; BMI 18.1
[2021-10-25] MEDS ORDERED: OLANZapine 5 MG TABLET PO ONE (17:18)
[2021-10-25] MEDS ORDERED: OLANZapine 10 MG TABLET ONE (17:24)
[2021-10-25 18:01] LABS: BASO % 0.6 % (0-2.0); EOS % 0.5 % (0-4.5); HEMATOCRIT 35.7 % (35.4-49); HEMOGLOBIN 11.8 GM/dL (11.7-16.9); LYMPH % 15.8 % (8-40); MCH 27.8 pg (25.7-33.7); MCHC 33.1 g/dl (32.0-35.9); MEAN CELL VOLUME 84.2 fl (80-96); MEAN PLT VOLUME 6.5 fl (7.5-11.1); MONO % 10.3 % (3.8-10.2); NEUT % 72.8 % (42.8-82.8); PLATELET COUNT 480 10^3/uL (134-434); RBC 4.24 M/mm3 (4.00-5.60); WHITE BLOOD COUNT 7.7 K/mm3 (4.0-10.0)
[2021-10-25 18:20] LABS: CALCIUM 9.1 mg/dL (8.5-10.1)
[2021-10-25 18:21] LABS: ALBUMIN 3.5 g/dl (3.4-5.0)
[2021-10-25 18:24] LABS: CREATININE 0.5 mg/dL (0.55-1.3)
[2021-10-25 18:25] LABS: BILIRUBIN,TOTAL 0.4 mg/dL (0.2-1)
[2021-10-25 18:26] LABS: TOT PROT 6.9 g/dl (6.4-8.2)
[2021-10-25 18:32] LABS: ANISOCYTOSIS 1+; MACROCYTOSIS 1+; OVALOCYTE 1+
[2021-10-26 02:39] VITALS: BP 148/78; PULSE 97
== END 2021-10-26 02:39 | disposition short-term general hospital (02) ==
LOC: JER 16:02
DX: Z00.00 Encounter for general adult medical examination without abnormal findings (principal)
CPT/HCPCS: 36415; 70450-TC; 80053; 83605; 85025; 93005; 93010; 99285-25

== ENCOUNTER 2023-02-24 17:08 | Inpatient (IN) | payer OTHER ==
[2023-02-24 18:19] LABS: BASO % 0.8 % (0-2.0); EOS % 1.9 % (0-4.5); HEMATOCRIT 37.9 % (35.4-49); HEMOGLOBIN 13.1 GM/dL (11.7-16.9); MCH 29.6 pg (25.7-33.7); MCHC 34.5 g/dl (32.0-35.9); MEAN CELL VOLUME 85.9 fl (80-96); MEAN PLT VOLUME 7.3 fl (7.5-11.1); MONO % 9.4 % (3.8-10.2); NEUT % 52.9 % (42.8-82.8); PLATELET COUNT 278 10^3/uL (134-434); RBC 4.41 M/mm3 (4.00-5.60); RDW 16.4 % (11.9-15.9)
[2023-02-24 18:39] LABS: POTASSIUM 3.9 mmol/L (3.5-5.1)
[2023-02-24 18:41] LABS: CALCIUM 8.7 mg/dL (8.5-10.1)
[2023-02-24 18:42] LABS: ALBUMIN 3.3 g/dl (3.4-5.0); BLOOD UREA NITROGEN 8.3 mg/dL (7-18)
[2023-02-24 18:45] LABS: CREATININE 0.5 mg/dL (0.55-1.3)
[2023-02-24 18:46] LABS: BILIRUBIN,TOTAL 0.6 mg/dL (0.2-1); TOT PROT 6.8 g/dl (6.4-8.2)
[2023-02-25] MEDS ORDERED: ACETAMINOPHEN 325 MG TABLET (FP) PO PRN (06:34)
[2023-02-25] MEDS ORDERED: ALBUTEROL SO4 HFA INHALER IH PRN (06:45)
[2023-02-25] MEDS: ENOXAPARIN NA (PORCINE) 40 MG/0.4 ML DISP.SYRIN SQ SCH (09:36)
[2023-02-25] MEDS: CYANOCOBALAMIN 1,000 MCG TABLET (FP) PO SCH (09:36)
[2023-02-25] MEDS: MULTIVITAMINS (DAILY MVI) TABLET (FP) PO SCH (09:36)
[2023-02-25] MEDS: PANTOPRAZOLE 40 MG TABLET PO SCH (09:36)
[2023-02-25] MEDS: ASCORBIC ACID 500 MG TABLET (FP) PO SCH ×2 (09:36→21:09)
[2023-02-25] MEDS: amLODIPine BESYLATE 5 MG TABLET (FP) PO SCH (09:37)
[2023-02-25] MEDS ORDERED: DOCUSATE SODIUM 100 MG CAPSULE (FP) PO SCH (10:00)
[2023-02-25 10:38] LABS: PH,URINE 6.5 (5.0-8.0); URINE APPEARANCE CLEAR; URINE BILIRUBIN NEGATIVE (NEGATIVE); URINE COLOR YELLOW; URINE GLUCOSE (UA) NEGATIVE (NEGATIVE); URINE KETONE TRACE (NEGATIVE); URINE LEUK ESTERASE NEGATIVE (NEGATIVE); URINE NITRITE NEGATIVE (NEGATIVE); URINE PROTEIN NEGATIVE (NEGATIVE)
[2023-02-25 11:04] LABS: HEMATOCRIT 40.2 % (35.4-49); HEMOGLOBIN 12.9 GM/dL (11.7-16.9); MCH 28.5 pg (25.7-33.7); MCHC 32.2 g/dl (32.0-35.9); MEAN CELL VOLUME 88.6 fl (80-96); MEAN PLT VOLUME 8.2 fl (7.5-11.1); PLATELET COUNT 298 10^3/uL (134-434); RBC 4.54 M/mm3 (4.00-5.60); RDW 16.6 % (11.9-15.9); WHITE BLOOD COUNT 4.8 K/mm3 (4.0-10.0)
[2023-02-25 11:23] LABS: POTASSIUM 4.2 mmol/L (3.5-5.1)
[2023-02-25 11:43] LABS: BLOOD UREA NITROGEN 8.2 mg/dL (7-18)
[2023-02-25 11:46] LABS: ALBUMIN 3.3 g/dl (3.4-5.0); CREATININE 0.5 mg/dL (0.55-1.3); MAGNESIUM 2.1 mg/dL (1.8-2.4); PHOSPHOROUS 3.4 mg/dL (2.5-4.9)
[2023-02-25 11:48] LABS: TOT PROT 6.7 g/dl (6.4-8.2)
[2023-02-25 11:51] LABS: BILIRUBIN,TOTAL 1.2 mg/dL (0.2-1)
[2023-02-25 12:40] LABS: OPIATES, URI NEGATIVE (NEGATIVE); URINE BARBITURATES NEGATIVE (NEGATIVE)
[2023-02-25 12:41] LABS: METHADONE, UR NEGATIVE (NEGATIVE); PHENCYCLIDINE,URINE NEGATIVE (NEGATIVE); URINE BENZODIAZEPINES NEGATIVE (NEGATIVE)
[2023-02-25 12:45] LABS: COCAINE, UR NEGATIVE (NEGATIVE); URINE AMPHETAMINES NEGATIVE (NEGATIVE)
[2023-02-25] MEDS: PIPERACILLIN/TAZOB 3.375 GM 3.375 GM in DEXTROSE 5%-WATER - 50 ML IVPB SCH ×2 (13:07→17:17)
[2023-02-25] MEDS: LACTATED RINGERS SOLUTION 1,000 ML/1,000 ML INFUS.BAG IV SCH (17:17)
[2023-02-25] MEDS ORDERED: PIPERACILLIN/TAZOB 3.375 GM 3.375 GM in DEXTROSE 5%-WATER - 50 ML IVPB SCH (18:00)
[2023-02-25] MEDS: OLANZapine 2.5 MG TABLET PO SCH (21:09)
[2023-02-26] MEDS: PIPERACILLIN/TAZOB 3.375 GM 3.375 GM in DEXTROSE 5%-WATER - 50 ML IVPB SCH ×3 (02:19→18:08)
[2023-02-26] MEDS: LACTATED RINGERS SOLUTION 1,000 ML/1,000 ML INFUS.BAG IV SCH ×2 (05:32→17:06)
[2023-02-26 08:19] LABS: EOS % 2.2 % (0-4.5); HEMATOCRIT 38.1 % (35.4-49); HEMOGLOBIN 12.7 GM/dL (11.7-16.9); LYMPH % 34.2 % (8-40); MCH 28.7 pg (25.7-33.7); MCHC 33.3 g/dl (32.0-35.9); MEAN CELL VOLUME 86.3 fl (80-96); MEAN PLT VOLUME 7.2 fl (7.5-11.1); MONO % 8.6 % (3.8-10.2); PLATELET COUNT 270 10^3/uL (134-434); RBC 4.41 M/mm3 (4.00-5.60); RDW 16.4 % (11.9-15.9)
[2023-02-26 08:26] LABS: INR 1.04 (0.83-1.09); PROTHROMBIN TIME (PATIENT) 12.1 SEC (9.7-13.0)
[2023-02-26 08:39] LABS: POTASSIUM 3.8 mmol/L (3.5-5.1)
[2023-02-26 08:41] LABS: BLOOD UREA NITROGEN 5.5 mg/dL (7-18); CALCIUM 8.6 mg/dL (8.5-10.1)
[2023-02-26 08:45] LABS: CREATININE 0.6 mg/dL (0.55-1.3)
[2023-02-26 08:46] LABS: BILIRUBIN,TOTAL 1.1 mg/dL (0.2-1)
[2023-02-26 08:47] LABS: TOT PROT 5.9 g/dl (6.4-8.2)
[2023-02-26] MEDS: ENOXAPARIN NA (PORCINE) 40 MG/0.4 ML DISP.SYRIN SQ SCH (09:52)
[2023-02-26] MEDS: ASCORBIC ACID 500 MG TABLET (FP) PO SCH ×2 (09:53→21:22)
[2023-02-26] MEDS: amLODIPine BESYLATE 5 MG TABLET (FP) PO SCH (09:53)
[2023-02-26] MEDS: MULTIVITAMINS (DAILY MVI) TABLET (FP) PO SCH (09:53)
[2023-02-26] MEDS: PANTOPRAZOLE 40 MG TABLET PO SCH (09:53)
[2023-02-26] MEDS: CYANOCOBALAMIN 1,000 MCG TABLET (FP) PO SCH (09:53)
[2023-02-26] MEDS: OLANZapine 2.5 MG TABLET PO SCH (21:22)
[2023-02-27] MEDS: PIPERACILLIN/TAZOB 3.375 GM 3.375 GM in DEXTROSE 5%-WATER - 50 ML IVPB SCH ×3 (02:34→17:48)
[2023-02-27] MEDS: LACTATED RINGERS SOLUTION 1,000 ML/1,000 ML INFUS.BAG IV SCH ×3 (05:55→23:16)
[2023-02-27 07:55] LABS: BASO % 1.1 % (0-2.0); EOS % 2.3 % (0-4.5); HEMATOCRIT 39.7 % (35.4-49); HEMOGLOBIN 12.8 GM/dL (11.7-16.9); LYMPH % 34.6 % (8-40); MCH 28.5 pg (25.7-33.7); MCHC 32.1 g/dl (32.0-35.9); MEAN CELL VOLUME 88.9 fl (80-96); MONO % 9.4 % (3.8-10.2); NEUT % 52.6 % (42.8-82.8); PLATELET COUNT 283 10^3/uL (134-434); RBC 4.47 M/mm3 (4.00-5.60); RDW 16.7 % (11.9-15.9); WHITE BLOOD COUNT 5.9 K/mm3 (4.0-10.0)
[2023-02-27 08:14] LABS: POTASSIUM 3.8 mmol/L (3.5-5.1)
[2023-02-27 08:18] LABS: CALCIUM 8.8 mg/dL (8.5-10.1)
[2023-02-27 08:19] LABS: ALBUMIN 3.1 g/dl (3.4-5.0); BLOOD UREA NITROGEN 4.1 mg/dL (7-18)
[2023-02-27 08:22] LABS: CREATININE 0.6 mg/dL (0.55-1.3)
[2023-02-27 08:24] LABS: BILIRUBIN,TOTAL 0.9 mg/dL (0.2-1)
[2023-02-27] MEDS: amLODIPine BESYLATE 5 MG TABLET (FP) PO SCH (10:27)
[2023-02-27] MEDS: CYANOCOBALAMIN 1,000 MCG TABLET (FP) PO SCH (10:28)
[2023-02-27] MEDS: MULTIVITAMINS (DAILY MVI) TABLET (FP) PO SCH (10:28)
[2023-02-27] MEDS: ASCORBIC ACID 500 MG TABLET (FP) PO SCH ×2 (10:28→22:22)
[2023-02-27] MEDS: PANTOPRAZOLE 40 MG TABLET PO SCH (10:28)
[2023-02-27] MEDS ORDERED: MIDAZOLAM HCL 2 MG/2 ML SINGLE DOSE VIAL ONE (10:39)
[2023-02-27] MEDS ORDERED: FENTANYL CITRATE/PF 50 MCG/ML VIAL ONE (10:40)
[2023-02-27] MEDS ORDERED: IOHEXOL 300 MG/ML INFUS..BTL IV ONE (11:40)
[2023-02-27] MEDS ORDERED: LACTATED RINGERS SOLUTION 1,000 ML/1,000 ML INFUS.BAG IV SCH (12:45)
[2023-02-27] MEDS: OLANZapine 2.5 MG TABLET PO SCH (22:22)
[2023-02-28] MEDS: PIPERACILLIN/TAZOB 3.375 GM 3.375 GM in DEXTROSE 5%-WATER - 50 ML IVPB SCH ×3 (03:29→18:13)
[2023-02-28] MEDS ORDERED: LACTATED RINGERS SOLUTION 1,000 ML/1,000 ML INFUS.BAG IV SCH (08:00)
[2023-02-28 08:32] LABS: BASO % 0.4 % (0-2.0); EOS % 0.5 % (0-4.5); HEMATOCRIT 36.2 % (35.4-49); HEMOGLOBIN 12.3 GM/dL (11.7-16.9); LYMPH % 32.2 % (8-40); MCH 29.3 pg (25.7-33.7); MCHC 33.9 g/dl (32.0-35.9); MEAN CELL VOLUME 86.3 fl (80-96); MEAN PLT VOLUME 7.6 fl (7.5-11.1); MONO % 9.4 % (3.8-10.2); NEUT % 57.5 % (42.8-82.8); PLATELET COUNT 255 10^3/uL (134-434); RBC 4.19 M/mm3 (4.00-5.60); RDW 16.2 % (11.9-15.9); WHITE BLOOD COUNT 6.7 K/mm3 (4.0-10.0)
[2023-02-28 08:47] LABS: POTASSIUM 3.9 mmol/L (3.5-5.1)
[2023-02-28 08:49] LABS: CALCIUM 8.8 mg/dL (8.5-10.1)
[2023-02-28 08:53] LABS: ALBUMIN 2.9 g/dl (3.4-5.0)
[2023-02-28 08:54] LABS: BLOOD UREA NITROGEN 3.7 mg/dL (7-18); MAGNESIUM 1.8 mg/dL (1.8-2.4)
[2023-02-28 08:56] LABS: BILIRUBIN,DIRECT 0.5 mg/dL (0.0-0.2); CREATININE 0.5 mg/dL (0.55-1.3)
[2023-02-28 08:58] LABS: BILIRUBIN,TOTAL 0.6 mg/dL (0.2-1); TOT PROT 5.8 g/dl (6.4-8.2)
[2023-02-28] MEDS: ASCORBIC ACID 500 MG TABLET (FP) PO SCH ×2 (09:23→22:03)
[2023-02-28] MEDS: MULTIVITAMINS (DAILY MVI) TABLET (FP) PO SCH (09:23)
[2023-02-28] MEDS: amLODIPine BESYLATE 5 MG TABLET (FP) PO SCH (09:23)
[2023-02-28] MEDS: PANTOPRAZOLE 40 MG TABLET PO SCH (09:23)
[2023-02-28] MEDS: CYANOCOBALAMIN 1,000 MCG TABLET (FP) PO SCH (09:24)
[2023-02-28] MEDS: LACTATED RINGERS SOLUTION 1,000 ML/1,000 ML INFUS.BAG IV SCH (18:13)
[2023-02-28] MEDS: OLANZapine 2.5 MG TABLET PO SCH (22:03)
[2023-03-01] MEDS: LACTATED RINGERS SOLUTION 1,000 ML/1,000 ML INFUS.BAG IV SCH ×2 (01:04→19:19)
[2023-03-01] MEDS: PIPERACILLIN/TAZOB 3.375 GM 3.375 GM in DEXTROSE 5%-WATER - 50 ML IVPB SCH ×3 (01:04→17:30)
[2023-03-01 09:52] LABS: EOS % 1.8 % (0-4.5); HEMOGLOBIN 12.8 GM/dL (11.7-16.9); LYMPH % 26.2 % (8-40); MCHC 32.7 g/dl (32.0-35.9); MEAN CELL VOLUME 88.7 fl (80-96); MEAN PLT VOLUME 7.8 fl (7.5-11.1); MONO % 7.3 % (3.8-10.2); NEUT % 63.7 % (42.8-82.8); PLATELET COUNT 288 10^3/uL (134-434); RBC 4.39 M/mm3 (4.00-5.60); RDW 16.6 % (11.9-15.9); WHITE BLOOD COUNT 7.1 K/mm3 (4.0-10.0)
[2023-03-01] MEDS: ASCORBIC ACID 500 MG TABLET (FP) PO SCH ×2 (10:07→21:58)
[2023-03-01] MEDS: PANTOPRAZOLE 40 MG TABLET PO SCH (10:07)
[2023-03-01] MEDS: CYANOCOBALAMIN 1,000 MCG TABLET (FP) PO SCH (10:07)
[2023-03-01] MEDS: MULTIVITAMINS (DAILY MVI) TABLET (FP) PO SCH (10:08)
[2023-03-01] MEDS: amLODIPine BESYLATE 5 MG TABLET (FP) PO SCH (10:08)
[2023-03-01 10:10] LABS: CHLORIDE 104 mmol/L (98-107); POTASSIUM 3.7 mmol/L (3.5-5.1)
[2023-03-01 10:14] LABS: BLOOD UREA NITROGEN 3.9 mg/dL (7-18); CO2 32 mmol/L (21-32); GLUCOSE,RANDOM 106 mg/dL (74-106); LIPASE 185 U/L (73-393)
[2023-03-01] MEDS: ENOXAPARIN NA (PORCINE) 40 MG/0.4 ML DISP.SYRIN SQ SCH (10:16)
[2023-03-01 10:17] LABS: AMYLASE 81 U/L (25-115); SGOT/AST 30 U/L (15-37); SGPT/ALT 104 U/L (13-61)
[2023-03-01 10:19] LABS: BILIRUBIN,TOTAL 0.7 mg/dL (0.2-1); TOT PROT 6.3 g/dl (6.4-8.2)
[2023-03-01 10:20] LABS: ALK PHOS 261 U/L (45-117)
[2023-03-01 10:27] LABS: ANION GAP 6 MMOL/L (8-16); CREATININE 0.7 mg/dL (0.55-1.3); SODIUM 143 mmol/L (136-145)
[2023-03-01] MEDS: OLANZapine 2.5 MG TABLET PO SCH (21:56)
[2023-03-02] MEDS: PIPERACILLIN/TAZOB 3.375 GM 3.375 GM in DEXTROSE 5%-WATER - 50 ML IVPB SCH ×4 (02:29→21:00)
[2023-03-02 07:35] LABS: BASO % 0.8 % (0-2.0); EOS % 2.4 % (0-4.5); HEMATOCRIT 38.4 % (35.4-49); HEMOGLOBIN 12.9 GM/dL (11.7-16.9); LYMPH % 28.6 % (8-40); MCHC 33.5 g/dl (32.0-35.9); MEAN CELL VOLUME 86.6 fl (80-96); MEAN PLT VOLUME 7.3 fl (7.5-11.1); MONO % 10.2 % (3.8-10.2); PLATELET COUNT 272 10^3/uL (134-434); RBC 4.44 M/mm3 (4.00-5.60); RDW 16.5 % (11.9-15.9); WHITE BLOOD COUNT 6.7 K/mm3 (4.0-10.0)
[2023-03-02 08:19] LABS: POTASSIUM 3.9 mmol/L (3.5-5.1)
[2023-03-02 08:21] LABS: BLOOD UREA NITROGEN 4.3 mg/dL (7-18); CALCIUM 9.3 mg/dL (8.5-10.1)
[2023-03-02 08:22] LABS: ALBUMIN 2.8 g/dl (3.4-5.0)
[2023-03-02 08:23] LABS: CREATININE 0.6 mg/dL (0.55-1.3)
[2023-03-02 08:25] LABS: BILIRUBIN,TOTAL 0.5 mg/dL (0.2-1); TOT PROT 5.9 g/dl (6.4-8.2)
[2023-03-02] MEDS: ENOXAPARIN NA (PORCINE) 40 MG/0.4 ML DISP.SYRIN SQ SCH (10:04)
[2023-03-02] MEDS: CYANOCOBALAMIN 1,000 MCG TABLET (FP) PO SCH (10:05)
[2023-03-02] MEDS: MULTIVITAMINS (DAILY MVI) TABLET (FP) PO SCH (10:05)
[2023-03-02] MEDS: ASCORBIC ACID 500 MG TABLET (FP) PO SCH ×2 (10:05→22:19)
[2023-03-02] MEDS: PANTOPRAZOLE 40 MG TABLET PO SCH (10:05)
[2023-03-02] MEDS: amLODIPine BESYLATE 5 MG TABLET (FP) PO SCH (10:05)
[2023-03-02] MEDS ORDERED: BUPIVACAINE HCL/PF 0.5% (5MG/ML) 10 ML VIAL ONE (13:54)
[2023-03-02] MEDS ORDERED: LIDOCAINE HCL 1%, 10 MG/ML (10ML VIAL) MDV ONE (13:54)
[2023-03-02] MEDS ORDERED: PROPOFOL 20 ML ONE (16:40)
[2023-03-02] MEDS ORDERED: MIDAZOLAM HCL 2 MG/2 ML SINGLE DOSE VIAL ONE (16:40)
[2023-03-02] MEDS ORDERED: ROCURONIUM BROMIDE 50 MG/5 ML SYRINGE ONE (16:40)
[2023-03-02] MEDS ORDERED: ceFAZolin SODIUM 1 GM VIAL IVPB ONE (16:57)
[2023-03-02] MEDS ORDERED: KETOROLAC TROMETHAMINE 30 MG/1 ML VIAL ONE (17:29)
[2023-03-02] MEDS ORDERED: ONDANSETRON 4 MG/2 ML VIAL ONE (17:29)
[2023-03-02] MEDS ORDERED: DEXAMETHASONE SOD PHOSPHATE 4 MG/1 ML VIAL ONE (17:29)
[2023-03-02] MEDS ORDERED: ceFAZolin SODIUM 1 GM VIAL ONE (17:29)
[2023-03-02] MEDS ORDERED: LIDOCAINE HCL 1%, 10 MG/ML (20ML VIAL) INF ONE (17:56)
[2023-03-02] MEDS ORDERED: BUPIVACAINE HCL/PF 0.5% (5 MG/ML) 30 ML VIAL IJ ONE (17:57)
[2023-03-02] MEDS: LACTATED RINGERS SOLUTION 1,000 ML/1,000 ML INFUS.BAG IV SCH ×2 (18:05→22:15)
[2023-03-02] MEDS ORDERED: SEVOFLURANE 250 ML BTL ONE (18:26)
[2023-03-02] MEDS ORDERED: ACETAMINOPHEN 1000 MG/100 ML BAG IVPB ONE ×2 (19:41→20:46)
[2023-03-02] MEDS ORDERED: ONDANSETRON 4 MG/2 ML VIAL IVPUSH PRN ×2 (19:41→19:52)
[2023-03-02] MEDS ORDERED: LACTATED RINGERS SOLUTION 1,000 ML IV SCH ×2 (19:45→19:52)
[2023-03-02] MEDS ORDERED: oxyCODONE HCL 5 MG TABLET PO PRN (19:52)
[2023-03-02] MEDS ORDERED: ALBUTEROL SO4 HFA INHALER IH PRN (19:52)
[2023-03-02] MEDS ORDERED: ACETAMINOPHEN INJECTION 100 ML IVPB ONE (20:42)
[2023-03-02] MEDS: OLANZapine 2.5 MG TABLET PO SCH (22:17)
[2023-03-03] MEDS ORDERED: ACETAMINOPHEN 1000 MG/100 ML BAG IVPB PRN (04:00)
[2023-03-03] MEDS: PIPERACILLIN/TAZOB 3.375 GM 3.375 GM in DEXTROSE 5%-WATER - 50 ML IVPB SCH ×3 (04:07→20:43)
[2023-03-03 07:22] LABS: POTASSIUM 4.3 mmol/L (3.5-5.1)
[2023-03-03 07:24] LABS: CALCIUM 8.2 mg/dL (8.5-10.1)
[2023-03-03 07:25] LABS: ALBUMIN 2.7 g/dl (3.4-5.0); BLOOD UREA NITROGEN 8.8 mg/dL (7-18)
[2023-03-03 07:28] LABS: CREATININE 0.7 mg/dL (0.55-1.3)
[2023-03-03 07:29] LABS: TOT PROT 5.9 g/dl (6.4-8.2)
[2023-03-03 07:31] LABS: BILIRUBIN,TOTAL 0.6 mg/dL (0.2-1)
[2023-03-03 07:35] LABS: BASO % 0.3 % (0-2.0); HEMATOCRIT 37.1 % (35.4-49); HEMOGLOBIN 12.5 GM/dL (11.7-16.9); LYMPH % 14.6 % (8-40); MCH 29.1 pg (25.7-33.7); MCHC 33.6 g/dl (32.0-35.9); MEAN CELL VOLUME 86.5 fl (80-96); MEAN PLT VOLUME 7.7 fl (7.5-11.1); MONO % 8.3 % (3.8-10.2); NEUT % 76.8 % (42.8-82.8); PLATELET COUNT 260 10^3/uL (134-434); RBC 4.29 M/mm3 (4.00-5.60); RDW 16.2 % (11.9-15.9); WHITE BLOOD COUNT 6.4 K/mm3 (4.0-10.0)
[2023-03-03] MEDS: ENOXAPARIN NA (PORCINE) 40 MG/0.4 ML DISP.SYRIN SQ SCH (10:08)
[2023-03-03] MEDS: MULTIVITAMINS (DAILY MVI) TABLET (FP) PO SCH (10:09)
[2023-03-03] MEDS: CYANOCOBALAMIN 1,000 MCG TABLET (FP) PO SCH (10:09)
[2023-03-03] MEDS: amLODIPine BESYLATE 5 MG TABLET (FP) PO SCH (10:09)
[2023-03-03] MEDS: PANTOPRAZOLE 40 MG TABLET PO SCH (10:09)
[2023-03-03] MEDS: ASCORBIC ACID 500 MG TABLET (FP) PO SCH ×2 (10:12→22:43)
[2023-03-03] MEDS ORDERED: FAMOTIDINE 20 MG TABLET PO ONE (20:10)
[2023-03-03] MEDS: LACTATED RINGERS SOLUTION 1,000 ML/1,000 ML INFUS.BAG IV SCH (20:42)
[2023-03-03] MEDS: OLANZapine 2.5 MG TABLET PO SCH (22:43)
[2023-03-04] MEDS: PIPERACILLIN/TAZOB 3.375 GM 3.375 GM in DEXTROSE 5%-WATER - 50 ML IVPB SCH (05:00)
[2023-03-04] MEDS: ENOXAPARIN NA (PORCINE) 40 MG/0.4 ML DISP.SYRIN SQ SCH (09:28)
[2023-03-04] MEDS: CYANOCOBALAMIN 1,000 MCG TABLET (FP) PO SCH (09:30)
[2023-03-04] MEDS: ASCORBIC ACID 500 MG TABLET (FP) PO SCH ×2 (09:30→21:06)
[2023-03-04] MEDS: PANTOPRAZOLE 40 MG TABLET PO SCH (09:30)
[2023-03-04] MEDS: amLODIPine BESYLATE 5 MG TABLET (FP) PO SCH (09:31)
[2023-03-04] MEDS: MULTIVITAMINS (DAILY MVI) TABLET (FP) PO SCH (09:31)
[2023-03-04] MEDS: LACTATED RINGERS SOLUTION 1,000 ML/1,000 ML INFUS.BAG IV SCH ×2 (13:08→21:06)
[2023-03-04 13:22] LABS: POTASSIUM 3.7 mmol/L (3.5-5.1)
[2023-03-04 13:23] LABS: ALBUMIN 3.2 g/dl (3.4-5.0); CALCIUM 9.3 mg/dL (8.5-10.1)
[2023-03-04 13:27] LABS: CREATININE 0.7 mg/dL (0.55-1.3)
[2023-03-04 13:28] LABS: BILIRUBIN,TOTAL 0.6 mg/dL (0.2-1)
[2023-03-04] MEDS: OLANZapine 2.5 MG TABLET PO SCH (21:06)
[2023-03-04 22:35] VITALS: RESP 18
[2023-03-05 09:15] LABS: POTASSIUM 3.8 mmol/L (3.5-5.1)
[2023-03-05 09:20] LABS: CALCIUM 8.4 mg/dL (8.5-10.1)
[2023-03-05 09:21] LABS: ALBUMIN 2.9 g/dl (3.4-5.0)
[2023-03-05 09:24] LABS: CREATININE 0.5 mg/dL (0.55-1.3)
[2023-03-05 09:26] LABS: BILIRUBIN,TOTAL 0.7 mg/dL (0.2-1); TOT PROT 6.1 g/dl (6.4-8.2)
[2023-03-05 10:16] VITALS: BMI 16.5
[2023-03-05] MEDS: ASCORBIC ACID 500 MG TABLET (FP) PO SCH (10:22)
[2023-03-05] MEDS: ENOXAPARIN NA (PORCINE) 40 MG/0.4 ML DISP.SYRIN SQ SCH (10:22)
[2023-03-05] MEDS: CYANOCOBALAMIN 1,000 MCG TABLET (FP) PO SCH (10:22)
[2023-03-05] MEDS: PANTOPRAZOLE 40 MG TABLET PO SCH (10:22)
[2023-03-05] MEDS: amLODIPine BESYLATE 5 MG TABLET (FP) PO SCH (10:22)
[2023-03-05] MEDS: MULTIVITAMINS (DAILY MVI) TABLET (FP) PO SCH (10:22)
[2023-03-05 10:28] VITALS: BP 118/64; PULSE 75; TEMP 98.5
== END 2023-03-05 13:56 | DRG 418 ==
LOC: JER 17:08 → JERBED 21:05 → J7W 02-25 00:03 → OBSVTOIN 02-26 12:17 → J7W 03-03 09:43
PROVIDERS: ADMIT Internal Medicine
PROC: 0FC98ZZ Extirpation of Matter from Common Bile Duct, Via Natural or Artificial Opening Endoscopic (ICD-10-PCS; 2023-02-27)
PROC: BF10YZZ Fluoroscopy of Bile Ducts using Other Contrast (ICD-10-PCS; 2023-02-27)
PROC: 0FT44ZZ Resection of Gallbladder, Percutaneous Endoscopic Approach (ICD-10-PCS; principal; 2023-03-02 15:00)
DX: K80.51 Calculus of bile duct without cholangitis or cholecystitis with obstruction (principal); E44.0 Moderate protein-calorie malnutrition; Z68.1 Body mass index [BMI] 19.9 or less, adult; R79.89 Other specified abnormal findings of blood chemistry; F31.9 Bipolar disorder, unspecified; I10 Essential (primary) hypertension; F03.90 Unspecified dementia, unspecified severity, without behavioral disturbance, psychotic disturbance, mood disturbance, and anxiety
CPT/HCPCS: 36415; 74181-TC; 76000-TC-FY; 76705-TC; 80053; 80307; 81003; 82150; 82248; 82550; 82977; 83690; 83735; 84100; 85025; 85027; 85610; 86140; 86704; 86708; 86709; 86803; 87086; 87340; 87517; 88304-TC; 93005; 93010; 94010; 94760; 97116-GP; 97162-GP; 99285-25; G0378